=== PATIENT | female | born 1980 | race Caucasian/White ===

== ENCOUNTER 2017-11-24 07:50 | Emergency (ER) | payer SELFPAY ==
[2017-11-24 07:52] VITALS: BP 133/74; PULSE 84; RESP 18; TEMP 36.4; O2SAT 98; BMI 30.9
[2017-11-24 08:03] VITALS: O2SAT 98
--- NOTE | 2017-11-24 08:27 | EKG12_ITS ---
Test Reason : COLD SYMTOMS Blood Pressure : / mmHG Vent. Rate : 057 BPM Atrial Rate : 057 BPM P-R Int : 144 ms QRS Dur : 082 ms QT Int : 450 ms P-R-T Axes : 027 061 035 degrees QTc Int : 438 ms Sinus bradycardia with sinus arrhythmia Otherwise normal ECG Confirmed by EVELIO ALVAREZ, ÁNGEL ([id number]), newspaper or periodical editor NOEMY TURCIOS ([id number]) on 11/27/2017 10:39:52 AM Referred By: CHARLES Confirmed By:ÁNGEL FRASER MD
--- NOTE | 2017-11-24 08:28 | RAD_ITS ---
STUDY: X-RAY CHEST REASON FOR EXAM: Female, 37 years old. Off General weakness one week shortness of breath TECHNIQUE: PA and lateral views of the chest. COMPARISON: None. FINDINGS: There is slight elevation of the right hemidiaphragm. There is right greater than left streaky linear appearance of the right middle lobe. There is no demonstrated pleural abnormality. Normal size heart. Normal mediastinum and darin. Normal visualized pulmonary arteries. Normal visualized aortic arch and descending thoracic aorta. Normal visualized thoracic spine. Normal visualized ribs, clavicles, and shoulders. There is no demonstrated abnormality of the visualized soft tissue structures of the upper abdomen. RAD/Chest PA and Lateral IMPRESSION: Streaky linear appearance of the right middle lobe may represent focal atelectasis and/or infiltrate. Electronically Signed: Ivis Turner MD at 9:12 EDT Tel , Service support ,
--- NOTE | 2017-11-24 08:40 | ED.VISSUMM ---
- ER Visit Summary Date of Service: 11/24/17 Chief Complaint: [] Runny nose cough for about a week History of Present Illness: The patient is a 37 F [] history of runny nose harsh cough for about 1 week she has no past history, does report she smokes, bowel bladder habits been normal no obvious exposures she was going to work today had a harsh cough and came in for evaluation denies being bowel bladder habits been normal Physical Examination: [] Vital signs are within normal range her pulse ox is within normal range she has a obviously copiously runny nose, she has a harsh dry cough her lungs show scattered wheezing with good excursion and good air movement heart tones are unremarkable abdomen soft nontender upper lower extremity unremarkable she is resting comforting the bed when she is not coughing clinically she looks well Test Results: [] Emergency Department Course and Treatment: []hhn, chest x-ray The patient's feeling better, the chest x-ray is questionable either linear atelectasis or possibly early infiltrate right middle lobe no other acute abnormalities discussed all the above the patient and the potential for pneumonia versus URI, she is comfortable discharge home on azithromycin Z-Hoang, Mucinex, Proventil inhaler, Flonase inhaler, short with her physician stop smoking return for change in symptoms force fluids we discussed the concept of pneumonia the fact that pneumonia patient follow-up and she agrees to return if her symptoms change in any way and she is comfortable discharge home Treatment Plan: [] Disposition: [] Home stable Impression: [] Possible right lobe pneumonia versus URI This note was generated with [employer] dictation software. It may contain incorrect words, spelling, and punctuation that were not noted in review of the chart prior to signing ED Disposition - Plan for ED Patient: Chief Complaint: Cold Sx Referrals: Care Physician,No Primary [Primary Care Provider] -
[2017-11-24 08:42] VITALS: BP 108/81; PULSE 63; RESP 15; O2SAT 96
[2017-11-24] MEDS: Ipratropium/Albuterol Sulfate 3 ML AMPUL.NEB INHALATION (09:16)
[2017-11-24 09:17] VITALS: PULSE 85; RESP 18
--- NOTE | 2017-11-24 09:52 | DCINST.ED_ITS ---
ED Disposition - Plan for ED Patient: Chief Complaint: Cold Sx Instructions: ED Pneumonia Adult, ED Upper Resp Infec Abx Tx Prescriptions: Albuterol Inhaler [Ventolin Hfa] 1 - 2 puff INHALATION Q4H PRN PRN #1 inhaler PRN Reason: Wheezing Azithromycin [Zithromax Z-Hoang] 250 mg PO UD #1 box Fluticasone 0.05% [Flonase Nasal [place]] 1 spray NASAL DAILY #1 nasal.sry Guaifenesin [Mucinex] 1,200 mg PO BID #20 tbmp.12hr Referrals: Care Physician,No Primary [Primary Care Provider] - Katerine Sommer [NON-STAFF] -
[2017-11-24 10:39] VITALS: BP 100/49; PULSE 92; RESP 18; O2SAT 100
== END 2017-11-24 10:39 | disposition home or self-care (01) ==
LOC: ED 08:19
PROVIDERS: Emergency Provider Emergency Medicine
DX: J18.9 Pneumonia, unspecified organism (principal); J06.9 Acute upper respiratory infection, unspecified; Z72.0 Tobacco use
CPT/HCPCS: 71046; 93005; 94640; 99283; A4216

== ENCOUNTER 2018-06-24 17:42 | Emergency (ER) | payer OTHER, SELFPAY ==
[2018-06-24 17:43] VITALS: BP 124/76; PULSE 86; RESP 16; TEMP 36.2; O2SAT 99; BMI 32.8
--- NOTE | 2018-06-24 18:00 | EKG12_ITS ---
Test Reason : GEN ILL Blood Pressure : / mmHG Vent. Rate : 068 BPM Atrial Rate : 068 BPM P-R Int : 142 ms QRS Dur : 086 ms QT Int : 406 ms P-R-T Axes : 029 035 015 degrees QTc Int : 431 ms Normal sinus rhythm Low voltage QRS Confirmed by SETH ALVAREZ, VENESSA ([id number]), publication editor LENKA GREENWOOD ([id number]) on 06/26/2018 1:42:50 PM Referred By: Confirmed By:VENESSA ANN MD
--- NOTE | 2018-06-24 18:21 | ED.VISSUMM ---
- ER Visit Summary Date of Service: 06/24/18 Chief Complaint: Short of breath, cough, headache History of Present Illness: The patient is a 38 F with a 3-week history of cough and congestion. She was initially seen in urgent care and given Zithromax for suspected pneumonia. She states her cough and congestion continued and she developed bilateral ear pain. She was seen again in urgent care on June 13 and diagnosed with bilateral ear infection. She is currently on cefuroxime and eardrops. Patient presents today with no improvement in her symptoms. Today she feels soreness and some mild swelling around her right eye as well. She does describe chest pain when she coughs. Physical Examination: Vital signs are unremarkable. Patient sitting upright in bed no acute distress. She is nontoxic appearing. Head neck examination reveals no eye injection. Extraocular movements are intact. She does have reproducible tenderness of the right maxillary sinus. Right TM reveals cloudy fluid. Left TM has clear fluid. Posterior pharynx exam is normal. Heart is regular rate and rhythm. Lungs sounds are clear. There is reproducible anterior chest wall tenderness. Abdomen is soft and nontender. Neuro exam is unremarkable. Test Results: [] Emergency Department Course and Treatment: I discussed with the patient that it sounds like we need a stronger antibiotic. My suspicion is she has otitis, sinusitis, as well as continued bronchitis. Patient will be treated with a course of Levaquin. EKG was obtained and reveals sinus rhythm at 68 bpm with normal QTC. Treatment Plan: [] Disposition: Discharge Impression: 1. Bronchitis 2. Right otitis media 3. Sinusitis This note was generated with [employer] dictation software. It may contain incorrect words, spelling, and punctuation that were not noted in review of the chart prior to signing ED Disposition - Plan for ED Patient: Chief Complaint: General Illness Referrals: Care Physician,No Primary [Primary Care Provider] -
--- NOTE | 2018-06-24 18:23 | ED.DEP ---
ED Disposition - Plan for ED Patient: Disposition: Home or Assisted Living Chief Complaint: General Illness Instructions: Acute Bronchitis, ED Sinusitis Abx Tx, ED Otitis Media Acute Adult Prescriptions: Levofloxacin [Levaquin] 750 mg PO DAILY #4 tablet Referrals: Wally Kearney MD [STAFF PHYSICIAN] - As Needed
[2018-06-24] MEDS: levoFLOXacin 750 MG Tablet PO (18:33)
--- OUTSIDE RECORDS SUMMARY | 2018-08-27 05:20 | XMS RPT_ITS ---
:1980 Author Organization [facility] Care Team Providers Name Role Phone WISAM LANG (CDA TEACHER) Attending Unavailable Primay Care Physicia, No Primary Care Unavailable Marcia Lake Attending Unavailable Aman Gregorio Attending Unavailable Primay Care Physicia, No Primary Care Unavailable PROBLEMS PROBLEMS No Problem Records FoundPROCEDURES PROCEDURES No Procedure Records FoundRESULTS RESULTS 12 LEAD ELECTROCARDIOGRAM Observed: 06/26/2018 Status: F Source: [place] 1:43 PM [facility] Cardiovascular Services [address] [place] [address] 12 Lead EKG 06/24/18 1810 MR#: [id number] Acct: [id number] Name: DANYEL POLK Rep #: [id number] : 1980 38 From: Jordon Ann MD Attending Dr: Status: DEP ER Ordering Dr: Marcia Lake MD Date: 06/24/18 Location: ED Sex: F C Admitted: Test Reason : GEN ILL Blood Pressure : / mmHG Vent. Rate : 068 BPM Atrial Rate : 068 BPM P-R Int : 142 ms QRS Dur : 086 ms QT Int : 406 ms P-R-T Axes : 029 035 015 degrees QTc Int : 431 ms Normal sinus rhythm Low voltage QRS Confirmed by SETH ALVAREZ, JORDON ([id number]), mapping editor LENKA GREENWOOD ([id number]) on 06/26/2018 1:42:50 PM Referred By: Confirmed By:JORDON ANN MD 06/26/18 1342 Date Jordon Ann MD CC: No Primary Care Physician; Marcia aLke MD Signed EMERGENCY DEPARTMENT Observed: 06/24/2018 Status: F Source: [place] SUMMARY 10:12 PM [facility] Medical Records Department [address] [place] [address] Emergency Department Summary 06/24/18 1821 MR#: [id number] Acct: [id number] Name: DANYEL POLK Rep #: [id number] : 1980 38 From: Marcia Lake MD PCP: Care Physician, No Primary Status: DEP ER - ER Visit Summary Date of Service: 06/24/18 Chief Complaint: Short of breath, cough, headache History of Present Illness: The patient is a 38 F with a 3- week history of cough and congestion. She was initially seen in urgent care and given Zithromax for suspected pneumonia. She states her cough and congestion continued and she developed bilateral ear pain. She was seen again in urgent care on June 13 and diagnosed with bilateral ear infection. She is currently on cefuroxime and eardrops. Patient presents today with no improvement in her symptoms. Today she feels soreness and some mild swelling around her right eye as well. She does describe chest pain when she coughs. Physical Examination: Vital signs are unremarkable. Patient sitting upright in bed no acute distress. She is nontoxic appearing. Head neck examination reveals no eye injection. Extraocular movements are intact. She does have reproducible tenderness of the right maxillary sinus. Right TM reveals cloudy fluid. Left TM has clear fluid. Posterior pharynx exam is normal. Heart is regular rate and rhythm. Lungs sounds are clear. There is reproducible anterior chest wall tenderness. Abdomen is soft and nontender. Neuro exam is unremarkable. Test Results: [] Emergency Department Course and Treatment: I discussed with the patient that it sounds like we need a stronger antibiotic. My suspicion is she has otitis, sinusitis, as well as continued bronchitis. Patient will be treated with a course of Levaquin. EKG was obtained and reveals sinus rhythm at 68 bpm with normal QTC. Treatment Plan: [] Disposition: Discharge Impression: 1. Bronchitis 2. Right otitis media 3. Sinusitis This note was generated with Splother dictation software. It may contain incorrect words, spelling, and punctuation that were not noted in review of the chart prior to signing ED Disposition - Plan for ED Patient: Chief Complaint: General Illness Referrals: Care Physician,No Primary [Primary Care Provider] - What to do if you have Problems For any increased pain, shortness of breath, bleeding, nausea or vomiting, chest pain, or any unexpected problems, contact your Primary Care Provider. Call [facility] ([phone]) or report to the closest Emergency Room. Call 911 if necessary. 06/24/182211 <Electronically signed by Marcia Lake MD> Date Marcia Lake MD Cosigner Signature (If Indicated): Date CC: No Primary Care Physician DISCHARGE INSTRUCTION Observed: 06/24/2018 Status: F Source: [place] 6:24 PM [facility] Medical Records Department [address] [place] [address] Discharge Instruction 06/24/18 1823 MR#: [id number] Acct: [id number] Name: DANYEL POLK Rep #: [id number] : 1980 38 From: Marcia Lake MD PCP: Care Physician, No Primary Status: REG ER ED Disposition - Plan for ED Patient: Disposition: Home or Assisted Living Chief Complaint: General Illness Instructions: Acute Bronchitis, ED Sinusitis Abx Tx, ED Otitis Media Acute Adult Prescriptions: Levofloxacin [Levaquin] 750 mg PO DAILY #4 tablet Referrals: Wally Kearney MD [STAFF PHYSICIAN] - As Needed What to do if you have Problems For any increased pain, shortness of breath, bleeding, nausea or vomiting, chest pain, or any unexpected problems, contact your Primary Care Provider. Call [facility] ([phone]) or report to the closest Emergency Room. Call 911 if necessary. 06/24/18 9399 <Electronically signed by Marcia Lake MD> Date Marcia Lake MD Cosigner Signature (If Indicated): Date CC: No Primary Care Physician PROGRESS Observed: 02/14/2018 Status: COMPLETED Source: [place] 8:20 AM [facility] [place] REPOSITORY O ID: [id number] Author: Riya Foreman Service: (none) Author Type: Physician Outside Sales Inspector Type: Progress Notes Filed: 02/14/2018 1:43 PM Note Text: 02/14/2018 Patient presents with: Chest Congestion: chest congestion, cough, pressure headache, bilateral ear pressure SUBJECTIVE: This is a 37 year old that is here today for Complaint(s) of cough and chest congestion x 3 days. + YENI ear pressure. Notes ROBLES and sore throat. Denies SOB, wheezing, vomiting, diarrhea . PAST MEDICAL HISTORY Diagnosis Date - Otitis media several as a child requiring tubes 11 times per pt. - Smoker ALLERGIES Penicillin MEDICATIONS Current Outpatient Prescriptions: Ascorbic Acid (VITAMIN C) 1,000 mg tablet Take 1 tablet by mouth once daily. azithromycin (ZITHROMAX Z-HALLEY) 250 mg tablet Take 250 mg by mouth as directed. guaiFENesin (MUCINEX) 1,200 mg Ta12 Take 1 tablet by mouth twice daily. fluticasone (FLONASE ALLERGY RELIEF) 50 mcg/actuation nasal spray Use 1 [place] in each nostril once daily. albuterol HFA (PROAIR HFA) 90 mcg/actuation inhaler Inhale 2 Puffs as instructed as needed. [place]-3 Fatty Acids (FISH OIL) 500 mg cap Take 1 capsule by mouth once daily. (Patient not taking: Reported on 02/14/2018 ) No current facility-administered medications for this visit. SOCIAL HISTORY Social History Marital status: Single Spouse name: Years of education: Number of children: Social History Main Topics Smoking status: Current Some Day Smoker Packs/day: 0.50 Years: 18.00 Types: Cigarettes Smokeless tobacco: Never Used Alcohol use: No Drug use: No Sexual activity: Yes Partners with: Male control/protection: None, Tubal Ligation REVIEW OF SYSTEMS All other reviewed and negative other than HPI. OBJECTIVE: BP 124/82 Pulse 95 Temp 36.8 ?C (98.3 ?F) (Oral) Wt 84.4 kg (186 lb) SpO2 97% APPEARANCE Well appearing, alert, in no acute distress, well-hydrated, well nourished. EYES PERRLA, conjunctiva and sclera normal. EARS External ears normal, canals clear. Right TM bulging, dull. Left TM dull NOSE/SINUS Nares normal. Septum midline. Mucosa normal. No drainage or sinus tenderness. THROAT normal, no erythema NECK Supple, no adenopathy; HEART RRR with normal S1 and S2 LUNG clear to auscultation, No wheezing, rhonchi, rales. ASSESSMENT/PLAN: 1. Acute otitis media, right - ICD9: 382.9, ICD10: H66.91 (primary diagnosis) - Will begin treatment with as per antibiotic as written, see orders - The patient should also be given behind the counter Pseudoephedrine, warm salt water gargles, throat lozenges and/or OTC throat spray as needed and nasal saline gtts and suction prn for the first 5-7 days of treatment. - Supportive care with plenty of fluids, rest, and analgesia prn. - Follow up in 3-5 days if symptoms persist or worsen. - AZITHROMYCIN 250 MG TABLET Allergy to PCN-uncertain of reaction. Had never been on cephalosporins previously. 2. Viral URI with cough - ICD9: 465.9, ICD10: J06.9, B97.89 - Discussed viral etiology and rationale for treatment. - Symptomatic treatment with prn analgesia - Supportive care with fluids and rest - The patient may also use OTC cough and cold meds as needed, warm salt water gargles, throat lozenges and/or OTC throat spray as needed and nasal saline gtts and suction prn. - Follow up in 3-5 days if symptoms persist or sooner if worsening of symptoms - BENZONATATE 100 MG CAPSULE The patient indicates understanding of these issues and agrees with the plan. Reviewed red flags and when to seek care sooner. Riya Foreman PA-C CNOV Observed: 02/14/2018 Status: COMPLETED Source: [place] 8:15 AM [facility] REPOSITORY Office Visit ([facility]) DANYEL POLK ([id number]) 1980 F Date Time Provider Department 02/14/18 8:15 AM RIYA FOREMAN) [facility] During your visit today, we recorded the following information about you: Temperature Pulse Blood pressure Weight 98.3 degrees 95/minute 124/82 84.4 kg Riya Foreman PA-C 02/14/2018 1:43 PM Signed 02/14/2018 Patient presents with: Chest Congestion: chest congestion, cough, pressure headache, bilateral ear pressure SUBJECTIVE: This is a 37 year old that is here today for Complaint(s) of cough and chest congestion x 3 days. + YENI ear pressure. Notes ROBLES and sore throat. Denies SOB, wheezing, vomiting, diarrhea . PAST MEDICAL HISTORY Diagnosis Date - Otitis media several as a child requiring tubes 11 times per pt. - Smoker ALLERGIES Penicillin MEDICATIONS Current Outpatient Prescriptions: Ascorbic Acid (VITAMIN C) 1,000 mg tablet Take 1 tablet by mouth once daily. azithromycin (ZITHROMAX Z-HALLEY) 250 mg tablet Take 250 mg by mouth as directed. guaiFENesin (MUCINEX) 1,200 mg Ta12 Take 1 tablet by mouth twice daily. fluticasone (FLONASE ALLERGY RELIEF) 50 mcg/actuation nasal spray Use 1 [place] in each nostril once daily. albuterol HFA (PROAIR HFA) 90 mcg/actuation inhaler Inhale 2 Puffs as instructed as needed. [place]-3 Fatty Acids (FISH OIL) 500 mg cap Take 1 capsule by mouth once daily. (Patient not taking: Reported on 02/14/2018 ) No current facility-administered medications for this visit. SOCIAL HISTORY Social History Marital status: Single Spouse name: Years of education: Number of children: Social History Main Topics Smoking status: Current Some Day Smoker Packs/day: 0.50 Years: 18.00 Types: Cigarettes Smokeless tobacco: Never Used Alcohol use: No Drug use: No Sexual activity: Yes Partners with: Male control/protection: None, Tubal Ligation REVIEW OF SYSTEMS All other reviewed and negative other than HPI. OBJECTIVE: BP 124/82 Pulse 95 Temp 36.8 ?C (98.3 ?F) (Oral) Wt 84.4 kg (186 lb) SpO2 97% APPEARANCE Well appearing, alert, in no acute distress, well- hydrated, well nourished. EYES PERRLA, conjunctiva and sclera normal. EARS External ears normal, canals clear. Right TM bulging, dull. Left TM dull NOSE/SINUS Nares normal. Septum midline. Mucosa normal. No drainage or sinus tenderness. THROAT normal, no erythema NECK Supple, no adenopathy; HEART RRR with normal S1 and S2 LUNG clear to auscultation, No wheezing, rhonchi, rales. ASSESSMENT/PLAN: 1. Acute otitis media, right - ICD9: 382.9, ICD10: H66.91 (primary diagnosis) - Will begin treatment with as per antibiotic as written, see orders - The patient should also be given behind the counter Pseudoephedrine, warm salt water gargles, throat lozenges and/or OTC throat spray as needed and nasal saline gtts and suction prn for the first 5-7 days of treatment. - Supportive care with plenty of fluids, rest, and analgesia prn. - Follow up in 3-5 days if symptoms persist or worsen. - AZITHROMYCIN 250 MG TABLET Allergy to PCN-uncertain of reaction. Had never been on cephalosporins previously. 2. Viral URI with cough - ICD9: 465.9, ICD10: J06.9, B97.89 - Discussed viral etiology and rationale for treatment. - Symptomatic treatment with prn analgesia - Supportive care with fluids and rest - The patient may also use OTC cough and cold meds as needed, warm salt water gargles, throat lozenges and/or OTC throat spray as needed and nasal saline gtts and suction prn. - Follow up in 3-5 days if symptoms persist or sooner if worsening of symptoms - BENZONATATE 100 MG CAPSULE The patient indicates understanding of these issues and agrees with the plan. Reviewed red flags and when to seek care sooner. Riya Foreman PA-C Referring Provider: SELF [200] Allergies As of Date: 02/14/2018 Noted Allergy Reaction PENICILLIN 11/27/2017 16 - Unknown Comments: Childhood DX Date Reviewed: 02/14/2018 Reviewed by: Sheri Mann Ma - Fully Assessed Reason for Visit: Chest Congestion [236] Cmt: chest congestion, cough, pressure headache, bilateral ear pressure Primary Visit Diagnosis:Acute otitis media, right [H66.91] Other Visit Diagnosis:Viral URI with cough [J06.9, B97.89] Order(s):azithromycin (ZITHROMAX Z-HALLEY) 250 mg tabletTake 2 tablets day one, then, 1 tablet daily until gone.Disp: 1 PackageRfl: 0 benzonatate (TESSALON PERLE) 100 mg capsuleTake 1- 2 capsules by mouth three times daily as needed.Disp: 30 capsuleRfl: 0 Prescriptions as of 02/14/2018 Sig: ASCORBIC ACID (VITAMIN C) 1,0* Take 1 tablet by mouth once d* AZITHROMYCIN 250 MG TABLET Take 2 tablets day one, then,* BENZONATATE 100 MG CAPSULE Take 1-2 capsules by mouth th* AZITHROMYCIN 250 MG TABLET Take 250 mg by mouth as direc* GUAIFENESIN ER 1,200 MG TABLE* Take 1 tablet by mouth twice * FLUTICASONE 50 MCG/ACTUATION * Use 1 [place] in each nostril o* ALBUTEROL SULFATE HFA 90 MCG/* Inhale 2 Puffs as instructed * [place]-3 FATTY ACIDS 500 MG CA* Take 1 capsule by mouth once * Patient not taking: Reported on 02/14/2018 Problem List As Of Date: 02/14/2018 (None) Prescriptions ordered this encounter Disp Refills Start End AZITHROMYCIN 250 MG TABLET 1 Pa* 0 02/14/2018 02/19/2018 Sig: Take 2 tablets day one, then, 1 tablet daily until gone. BENZONATATE 100 MG CAPSULE 30 c* 0 02/14/2018 Route: ORAL Sig: Take 1-2 capsules by mouth three times daily as needed. Letter Text Riya Foreman PA-C Urgent Care [address] [facility] [address] Dept: [phone] 02/14/2018 Danyel Polk [address] [facility] [id number] To Whom it May Concern: This is to certify that Danyel Polk was seen at our office for medical care. If you have any questions please feel free to call. Sincerely: Riya Foreman PA-C Encounter Status:Closed by RIYA FOREMAN PA-C on 02/14/18 12 LEAD ELECTROCARDIOGRAM Observed: 11/27/2017 Status: F Source: [place] 10:40 AM [facility] RE[facility] Cardiovascular Services [address] [place] [address] 12 Lead EKG 11/24/17 0912 MR#: [id number] Acct: [id number] Name: DANYEL POLK Rep #: [id number] : 1980 37 From: Miquel Champion MD Attending Dr: Status: DEP ER Ordering Dr: Aman Gregorio MD Date: 11/24/17 Location: ED Sex: F C Admitted: Test Reason : COLD SYMTOMS Blood Pressure : / mmHG Vent. Rate : 057 BPM Atrial Rate : 057 BPM P-R Int : 144 ms QRS Dur : 082 ms QT Int : 450 ms P-R-T Axes : 027 061 035 degrees QTc Int : 438 ms Sinus bradycardia with sinus arrhythmia Otherwise normal ECG Confirmed by MIQUEL CHAMPION MD ([id number]), mapping editor NOEMY TURCIOS ([id number]) on 11/27/2017 10:39:52 AM Referred By: CHARLES Confirmed By:MIQUEL CHAMPION MD 11/27/17 1039 Date Miquel Champion MD CC: MD Lori Gregorio; No Primary Care Physician Signed PROGRESS Observed: 11/27/2017 Status: COMPLETED Source: [place] 9:48 AM [facility] REPOSITORY HNO ID: [id number] Author: Wisam Lang Service: (none) Author Type: Nurse Practitioner Type: Progress Notes Filed: 11/27/2017 10:05 AM Note Text: 11/27/2017 Patient presents with: ER F/U: pneumonia 11/24/17 SUBJECTIVE: This is a 37 year old that is here today for ER follow up pneumonia and URI. She was seen in [facility] ER 11/24/17 and started on Zpak, mucinex, flonase, and albuterol inhaler. She states that she is not feeling any better and she now has worse ear pain and cannot hear out of the left ear. She states she has a history of chronic otitis media requiring tubes 11 times. She continues to have a harsh cough, feels like she should be able to bring something up but can't. She has felt feverish, but has not checked temp- last night was the most recent. Nasal congestion and rhinorrhea. Boyfriend can feel wheezing when touching her back. Occasionally hears wheezing. Inhaler helps. She has been drinking a lot of water. No change in diet, bowel or bladder. Denies facial pain or ROBLES. Denies CP or SOB. PAST MEDICAL HISTORY Diagnosis Date - Smoker ALLERGIES Penicillin MEDICATIONS Current Outpatient Prescriptions: azithromycin (ZITHROMAX Z-HALLEY) 250 mg tablet Take 250 mg by mouth as directed. guaiFENesin (MUCINEX) 1,200 mg Ta12 Take 1 tablet by mouth twice daily. fluticasone (FLONASE ALLERGY RELIEF) 50 mcg/actuation nasal spray Use 1 [place] in each nostril once daily. albuterol HFA (PROAIR HFA) 90 mcg/actuation inhaler Inhale 2 Puffs as instructed as needed. Ascorbic Acid (VITAMIN C) 1,000 mg tablet Take 1 tablet by mouth once daily. [place]-3 Fatty Acids (FISH OIL) 500 mg cap Take 1 capsule by mouth once daily. doxycycline monohydrate (MONODOX) 100 mg capsule Take 1 capsule by mouth twice daily for 10 days. No current facility-administered medications for this visit. Medications and allergies reviewed by this provider. SOCIAL HISTORY Social History Marital status: Single Spouse name: Years of education: Number of children: Social History Main Topics Smoking status: Current Some Day Smoker Packs/day: 0.50 Years: 18.00 Types: Cigarettes Smokeless tobacco: Never Used Alcohol use: No Drug use: No Sexual activity: Yes Partners with: Male control/protection: None, Tubal Ligation REVIEW OF SYSTEMS see HPI OBJECTIVE: BP 114/82 (BP Site: Left Arm, BP Position: Sitting, BP Cuff Size: Regular Adult) Pulse 86 Temp 36.7 ?C (98.1 ?F) (Right Tympanic) Resp 16 Wt 85 kg (187 lb 6.4 oz) LMP 11/09/2017 (Approximate) SpO2 98% . Vital signs reviewed by this provider. PHYSICAL EXAMINATION: General appearance: Well appearing, alert, in no acute distress, well-hydrated, well nourished. Skin: Skin color, texture, turgor normal, no suspicious rashes or lesions Head: Normocephalic, no masses, lesions, tenderness or abnormalities Eyes: Anicteric sclera. Pupils are equally round and reactive to light. Extraocular movements are intact. Ears: Positive findings: pain with motion of pinna and tragus: bilaterally, R TM: bulging, L TM: purulent material noted behind TM, scarring noted and thickened, erythema and edema of ear canal: on left Nose/Sinuses: Positive findings: mucosa erythematous and swollen, clear rhinorrhea Oropharynx: Positive findings: mild oropharyngeal erythema, tonsillar hypertrophy 1+, exudates present- clear Neck: Positive findings: submaxillary, submental and superficial cervical adenopathy Lungs: Lungs clear to auscultation. No wheezing, rhonchi, rales Heart: RRR without murmur, gallop, or rubs. No ectopy ASSESSMENT/PLAN: 1. Bacterial pneumonia - ICD9: 482.9, ICD10: J15.9 (primary diagnosis) - due to otitis media, will switch antibiotic to doxy. Pt instructed to stop Zpak. - continue to cough and deep breathe - encouraged fluids, humidifier, rest and continued use of mucinex, flonase, and albuterol as needed - DOXYCYCLINE MONOHYDRATE 100 MG CAPSULE 2. Acute otitis media, left - ICD9: 382.9, ICD10: H66.92 - see above - DOXYCYCLINE MONOHYDRATE 100 MG CAPSULE Wisam Lang APRN.MICHAEL MARTIN Observed: 11/27/2017 Status: COMPLETED Source: [place] 9:00 AM [facility] REPOSITORY [facility] ([id number]) 1980 F Date Time Provider Department 11/27/17 9:00 AM WISAM LANG (MICHAEL) KEVEN During your visit today, we recorded the following information about you: Temperature Pulse Respiration Blood pressure 98.1 degrees 86/minute 16/minute 114/82 Weight Last Period 85 kg 11/09/17 Wisam Lang APRN.MICHAEL 11/27/2017 9:41 AM Signed Stop Zpak and start Doxycycline All Natural DIY Pineapple Cough Syrup Yield: about a cup What You Will Need ? 2 thick slices of fresh pineapple, peel removed, but core intact (about two good cups) ? 1 Tbsp honey ? 1/2 tsp cayenne pepper (omit or reduce for children) ? a thumb sized piece of bhavya (omit or reduce for children), peeled and sliced or rough chopped ? juice of 1 lemon Instructions 1) Give the pineapple a rough chop, including the core, which is not only edible but particularly healthy 2) Blend everything up in a activity director or seafood packer until smooth. 3) Use as is, or push the mixture through a mesh strainer to get a smoother syrup. 4) Keep in the refrigerator and take as needed. Note: Do not give anything with honey to children under 1 year old. If you have a persistent cough, seek medical attention. Recipe slightly adapted from [email or web address] Wisam Lang APRN.CNP 11/27/2017 10:05 AM Signed 11/27/2017 Patient presents with: ER F/U: pneumonia 11/24/17 SUBJECTIVE: This is a 37 year old that is here today for ER follow up pneumonia and URI. She was seen in [facility] ER 11/24/17 and started on Zpak, mucinex, flonase, and albuterol inhaler. She states that she is not feeling any better and she now has worse ear pain and cannot hear out of the left ear. She states she has a history of chronic otitis media requiring tubes 11 times. She continues to have a harsh cough, feels like she should be able to bring something up but can't. She has felt feverish, but has not checked temp- last night was the most recent. Nasal congestion and rhinorrhea. Boyfriend can feel wheezing when touching her back. Occasionally hears wheezing. Inhaler helps. She has been drinking a lot of water. No change in diet, bowel or bladder. Denies facial pain or ROBLES. Denies CP or SOB. PAST MEDICAL HISTORY Diagnosis Date - Smoker ALLERGIES Penicillin MEDICATIONS Current Outpatient Prescriptions: azithromycin (ZITHROMAX Z-HALLEY) 250 mg tablet Take 250 mg by mouth as directed. guaiFENesin (MUCINEX) 1,200 mg Ta12 Take 1 tablet by mouth twice daily. fluticasone (FLONASE ALLERGY RELIEF) 50 mcg/actuation nasal spray Use 1 [place] in each nostril once daily. albuterol HFA (PROAIR HFA) 90 mcg/actuation inhaler Inhale 2 Puffs as instructed as needed. Ascorbic Acid (VITAMIN C) 1,000 mg tablet Take 1 tablet by mouth once daily. [place]-3 Fatty Acids (FISH OIL) 500 mg cap Take 1 capsule by mouth once daily. doxycycline monohydrate (MONODOX) 100 mg capsule Take 1 capsule by mouth twice daily for 10 days. No current facility-administered medications for this visit. Medications and allergies reviewed by this provider. SOCIAL HISTORY Social History Marital status: Single Spouse name: Years of education: Number of children: Social History Main Topics Smoking status: Current Some Day Smoker Packs/day: 0.50 Years: 18.00 Types: Cigarettes Smokeless tobacco: Never Used Alcohol use: No Drug use: No Sexual activity: Yes Partners with: Male control/protection: None, Tubal Ligation REVIEW OF SYSTEMS see HPI OBJECTIVE: BP 114/82 (BP Site: Left Arm, BP Position: Sitting, BP Cuff Size: Regular Adult) Pulse 86 Temp 36.7 ?C (98.1 ?F) (Right Tympanic) Resp 16 Wt 85 kg (187 lb 6.4 oz) LMP 11/09/2017 (Approximate) SpO2 98% . Vital signs reviewed by this provider. PHYSICAL EXAMINATION: General appearance: Well appearing, alert, in no acute distress, well-hydrated, well nourished. Skin: Skin color, texture, turgor normal, no suspicious rashes or lesions Head: Normocephalic, no masses, lesions, tenderness or abnormalities Eyes: Anicteric sclera. Pupils are equally round and reactive to light. Extraocular movements are intact. Ears: Positive findings: pain with motion of pinna and tragus: bilaterally, R TM: bulging, L TM: purulent material noted behind TM, scarring noted and thickened, erythema and edema of ear canal: on left Nose/Sinuses: Positive findings: mucosa erythematous and swollen, clear rhinorrhea Oropharynx: Positive findings: mild oropharyngeal erythema, tonsillar hypertrophy 1+, exudates present- clear Neck: Positive findings: submaxillary, submental and superficial cervical adenopathy Lungs: Lungs clear to auscultation. No wheezing, rhonchi, rales Heart: RRR without murmur, gallop, or rubs. No ectopy ASSESSMENT/PLAN: 1. Bacterial pneumonia - ICD9: 482.9, ICD10: J15.9 (primary diagnosis) - due to otitis media, will switch antibiotic to doxy. Pt instructed to stop Zpak. - continue to cough and deep breathe - encouraged fluids, humidifier, rest and continued use of mucinex, flonase, and albuterol as needed - DOXYCYCLINE MONOHYDRATE 100 MG CAPSULE 2. Acute otitis media, left - ICD9: 382.9, ICD10: H66.92 - see above - DOXYCYCLINE MONOHYDRATE 100 MG CAPSULE Wisam Lang APRN.CDA TEACHER Referring Provider: SELF [200] Allergies As of Date: 11/27/2017 Noted Allergy Reaction PENICILLIN 11/27/2017 16 - Unknown Comments: Childhood DX Date Reviewed: 11/27/2017 Reviewed by: Tiffanie Gutierres Ma - Fully Assessed Reason for Visit: ER F/U [41] Cmt: pneumonia 11/24/17 Primary Visit Diagnosis:Bacterial pneumonia [J15.9] Other Visit Diagnosis:Acute otitis media, left [H66.92] Order(s):Ascorbic Acid (VITAMIN C) 1,000 mg tabletTake 1 tablet by mouth once daily.Disp: Rfl: [place]-3 Fatty Acids (FISH OIL) 500 mg capTake 1 capsule by mouth once daily.Disp: Rfl: doxycycline monohydrate (MONODOX) 100 mg capsuleTake 1 capsule by mouth twice daily for 10 days.Disp: 20 capsuleRfl: 0 Prescriptions as of 11/27/2017 Sig: AZITHROMYCIN 250 MG TABLET Take 250 mg by mouth as direc* GUAIFENESIN ER 1,200 MG TABLE* Take 1 tablet by mouth twice * FLUTICASONE 50 MCG/ACTUATION * Use 1 [place] in each nostril o* ALBUTEROL SULFATE HFA 90 MCG/* Inhale 2 Puffs as instructed * ASCORBIC ACID (VITAMIN C) 1,0* Take 1 tablet by mouth once d* OMEGA-3 FATTY ACIDS 500 MG CA* Take 1 capsule by mouth once * DOXYCYCLINE MONOHYDRATE 100 M* Take 1 capsule by mouth twice* Problem List As Of Date: 11/27/2017 (None) Other instructions from your clinician: Stop Zpak and start Doxycycline All Natural DIY Pineapple Cough Syrup Yield: about a cup What You Will Need ? 2 thick slices of fresh pineapple, peel removed, but core intact (about two good cups) ? 1 Tbsp honey ? 1/2 tsp cayenne pepper (omit or reduce for children) ? a thumb sized piece of bhavya (omit or reduce for children), peeled and sliced or rough chopped ? juice of 1 lemon Instructions 1) Give the pineapple a rough chop, including the core, which is not only edible but particularly healthy 2) Blend everything up in a activity director or seafood packer until smooth. 3) Use as is, or push the mixture through a mesh strainer to get a smoother syrup. 4) Keep in the refrigerator and take as needed. Note: Do not give anything with honey to children under 1 year old. If you have a persistent cough, seek medical attention. Recipe slightly adapted from [email or web address] Prescriptions ordered this encounter Disp Refills Start End ASCORBIC ACID (VITAMIN C) 1,000 MG T* 11/27/2017 Class: Med Update Route: ORAL Sig: Take 1 tablet by mouth once daily. OMEGA-3 FATTY ACIDS 500 MG CAPSULE 11/27/2017 Class: Med Update Route: ORAL Sig: Take 1 capsule by mouth once daily. DOXYCYCLINE MONOHYDRATE 100 MG CAPSU* 20 c* 0 11/27/2017 12/07/2017 Route: ORAL Sig: Take 1 capsule by mouth twice daily for 10 days. Letter Text Wisam Lang, CDA TEACHER [address] [place], [place] [address] 11/27/2017 TO WHOM IT MAY CONCERN: This is to confirm that Danyel Polk had an appointment and was seen at the [facility] in the Department of Family Medicine by Wisam Lang CNPon 11/27/2017 and may return to work on 11/29/17. Sincerely yours, Wisam Lang CNP Encounter Status:Closed by WISAM LANG on 11/27/17 EMERGENCY DEPARTMENT Observed: 11/24/2017 Status: F Source: WAIALUA SUMMARY 3:25 PM [facility] Medical Records Department [address] [place] [address] Emergency Department Summary 11/24/17 0840 MR#: [id number] Acct: [id number] Name: DANYEL POLK Rep #: [id number] : 1980 37 From: Aman Gregorio MD PCP: Care Physician, No Primary Status: DEP ER - ER Visit Summary Date of Service: 11/24/17 Chief Complaint: [] Runny nose cough for about a week History of Present Illness: The patient is a 37 F [] history of runny nose harsh cough for about 1 week she has no past history, does report she smokes, bowel bladder habits been normal no obvious exposures she was going to work today had a harsh cough and came in for evaluation denies being bowel bladder habits been normal Physical Examination: [] Vital signs are within normal range her pulse ox is within normal range she has a obviously copiously runny nose, she has a harsh dry cough her lungs show scattered wheezing with good excursion and good air movement heart tones are unremarkable abdomen soft nontender upper lower extremity unremarkable she is resting comforting the bed when she is not coughing clinically she looks well Test Results: [] Emergency Department Course and Treatment: []hhn, chest x-ray The patient's feeling better, the chest x-ray is questionable either linear atelectasis or possibly early infiltrate right middle lobe no other acute abnormalities discussed all the above the patient and the potential for pneumonia versus URI, she is comfortable discharge home on azithromycin Z-Halley, Mucinex, Proventil inhaler, Flonase inhaler, short with her physician stop smoking return for change in symptoms force fluids we discussed the concept of pneumonia the fact that pneumonia patient follow-up and she agrees to return if her symptoms change in any way and she is comfortable discharge home Treatment Plan: [] Disposition: [] Home stable Impression: [] Possible right lobe pneumonia versus URI This note was generated with [employer] dictation software. It may contain incorrect words, spelling, and punctuation that were not noted in review of the chart prior to signing ED Disposition - Plan for ED Patient: Chief Complaint: Cold Sx Referrals: Care Physician,No Primary [Primary Care Provider] - What to do if you have Problems For any increased pain, shortness of breath, bleeding, nausea or vomiting, chest pain, or any unexpected problems, contact your Primary Care Provider. Call [facility] ([phone]) or report to the closest Emergency Room. Call 911 if necessary. 11/24/17 1525 <Electronically signed by Aman Gregorio MD> Date Aman Gregorio MD Cosigner Signature (If Indicated): Date CC: No Primary Care Physician DISCHARGE INSTRUCTION Observed: 11/24/2017 Status: F Source: NORI 9:52 AM [facility] Medical Records Department [address] [place] [address] Discharge Instruction 11/24/17 0949 MR#: [id number] Acct: [id number] Name: DANYEL POLK Rep #: [id number] : 1980 37 From: Aman Gregorio MD PCP: Care Physician, No Primary Status: REG ER ED Disposition - Plan for ED Patient: Chief Complaint: Cold Sx Instructions: ED Pneumonia Adult, ED Upper Resp Infec Abx Tx Prescriptions: Albuterol Inhaler [Ventolin Hfa] 1 - 2 puff INHALATION Q4H PRN PRN #1 inhaler PRN Reason: Wheezing Azithromycin [Zithromax Z-Halley] 250 mg PO UD #1 box Fluticasone 0.05% [Flonase Nasal [place]] 1 spray NASAL DAILY #1 nasal.sry Guaifenesin [Mucinex] 1,200 mg PO BID #20 tbmp.12hr Referrals: Care Physician,No Primary [Primary Care Provider] - Katerine Sommer [NON-STAFF] - What to do if you have Problems For any increased pain, shortness of breath, bleeding, nausea or vomiting, chest pain, or any unexpected problems, contact your Primary Care Provider. Call [facility] ([phone]) or report to the closest Emergency Room. Call 911 if necessary. 11/24/17 0952 <Electronically signed by Aman rGegorio MD> Date Aman Gregorio MD Cosigner Signature (If Indicated): Date CC: No Primary Care Physician CHEST PA AND LATERAL Observed: 11/24/2017 Status: F Source: WAIALUA 8:29 AM [facility] Imaging Services [address] [place] [id number] Chest PA and Lateral MR#: [id number] Acct: [id number] Name: DANYEL POLK Rep #: [id number] : 1980 F 37 From: Ivis Turner MD PCP: Care Physician, No Primary Status: REG ER Study: Chest PA and Lateral Date of Exam: 11/24/17 Exam# [id number] Ordering Dr: Aman Gregorio MD STUDY: X-RAY CHEST REASON FOR EXAM: Female, 37 years old. Off General weakness one week shortness of breath TECHNIQUE: PA and lateral views of the chest. COMPARISON: None. FINDINGS: There is slight elevation of the right hemidiaphragm. There is right greater than left streaky linear appearance of the right middle lobe. There is no demonstrated pleural abnormality. Normal size heart. Normal mediastinum and darin. Normal visualized pulmonary arteries. Normal visualized aortic arch and descending thoracic aorta. Normal visualized thoracic spine. Normal visualized ribs, clavicles, and shoulders. There is no demonstrated abnormality of the visualized soft tissue structures of the upper abdomen. RAD/Chest PA and Lateral IMPRESSION: Streaky linear appearance of the right middle lobe may represent focal atelectasis and/or infiltrate. Electronically Signed: Ivis Turner MD at 9:12 EDT Tel , Service support , CC: MD Lori Martinezyekameron; No Primary Care Physician Film Booker: Signed ALLERGIES ALLERGIES DATE TYPE / CODE NAME / CODE REACTION SEVERITY SOURCE 06/24/2018 Drug Penicillins/F0010 Unknown Unknown Nori Allergy/416 32422(RXNORM) [facility] [id number]([facility] ED [facility]) Repository 11/27/2017 DRUG PENICILLIN UNKNOWN [facility]/[address] [place] [id number]([facility] ED CT) ENCOUNTERS ENCOUNTERS ADMIT/DISCHARGE ACCOUNT ADMITTING ENCOUNTER LOCATION SOURCE NUMBER CLASS 06/24/2018/06/24/19 [id number] Emergency [facility] ing:ED Repository 02/14/2018/02/16/20 [id number] Ambulatory [address] Repository 11/27/2017/11/29/19 [id number] Ambulatory [address] Repository 11/24/2017/11/25/19 [id number] Emergency [facility] ing:ED Repository PAYERS PAYERS ENCOUNTER GUARANTOR PAYER SUBSCRIBER SOURCE 06/24/2018 DANYEL Knight Primary DANYEL [id number] Insurance:MEDICAL RAINIERDOB: [facility] [place] Number: Repository [id number]: [phone]) [id number] [phone] () Date:[id number], [place] [address]UB: 06/24/2018 Secondary NOT GIVENUNK Nori Insurance:SELF PAY [facility] Number: Effective Repository Date:2018-06-24 11/24/2017 DANYEL Knight Primary NOT GIVENUNK Nori [id number] Insurance:SELF PAY [place], [place] Number: Effective Repository [phone]: [phone]) Date:2017-11-24 [phone] ()
== END 2018-06-24 18:36 | disposition home or self-care (01) ==
PROVIDERS: Emergency Provider Emergency Medicine
DX: J40 Bronchitis, not specified as acute or chronic (principal); H66.91 Otitis media, unspecified, right ear; J32.9 Chronic sinusitis, unspecified; Z72.0 Tobacco use
CPT/HCPCS: 93005; 99283

== ENCOUNTER 2018-07-29 18:20 | Emergency (ER) | payer OTHER, SELFPAY ==
[2018-07-29 18:21] VITALS: BP 110/81; PULSE 70; RESP 18; TEMP 36.9; O2SAT 98; BMI 33.9
[2018-07-29 19:50] VITALS: BP 129/87; PULSE 79; RESP 15; O2SAT 99
--- NOTE | 2018-07-29 20:05 | ED.VISSUMM ---
- ER Visit Summary Date of Service: 07/29/18 Chief Complaint: Swelling, redness left upper eyelid with crusting of eyelashes History of Present Illness: The patient is a 38 F who presents with swelling of the left upper eyelid with redness and crusting of eyelashes over the past 24 hours. She denies change in vision. She denies photophobia. She denies pain with movement. She has no other symptoms. Patient was concerned because she is scheduled for surgery this coming Sunday. She denies any constitutional symptoms. Physical Examination: Visual acuity is 20/25 right and left eye and both eyes. Pupils equal round reactive paradoxic muscle intact. Sclerae anicteric. There is no subconjunctival hemorrhage. Conjunctive is not injected. There is swelling of the left upper eyelid with mild discoloration. No crusting or discharge is noted at this time. There is no active matter the lacrimal gland or lacrimal apparatus. There is no preauricular lymphadenopathy. Test Results: None obtained Emergency Department Course and Treatment: Patient was informed that she has a hordeolum and recommended hot compresses, cleaning her eyelashes with baby shampoo and massaging the upper eyelid Treatment Plan: As outlined under ED course Disposition: Discharged home Impression: Hordeolum left upper eyelid This note was generated with [employer] dictation software. It may contain incorrect words, spelling, and punctuation that were not noted in review of the chart prior to signing ED Disposition - Plan for ED Patient: Disposition: Home or Assisted Living Instructions: ED Hordeolum Referrals: Care Physician,No Primary [Primary Care Provider] - Additional Instructions: Hot compresses 6-8 times a day for 15-20 minutes, rub upper eyelid with baby shampoo 4 times a day
== END 2018-07-29 20:25 | disposition home or self-care (01) ==
LOC: ED 20:15
PROVIDERS: Emergency Provider Emergency Medicine
DX: H00.014 Hordeolum externum left upper eyelid (principal); Z72.0 Tobacco use
CPT/HCPCS: 99283

== ENCOUNTER 2018-08-02 07:08 | Day surgery (SDC) | payer OTHER, SELFPAY ==
[2018-08-02 07:25] VITALS: BP 112/72; PULSE 72; RESP 17; TEMP 36.6; O2SAT 98; BMI 34.9
--- NOTE | 2018-08-02 09:05 | PCM.OPRPT ---
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 Historically this resulted in significant improvement of her hearing loss and she presented for evaluation for a conductive hearing loss with exam showing deeply retracted tympanic membranes bilaterally. The above procedure offered hopes of improvement of her hearing loss as well as prevention of progression of her adhesive middle ear disease and she was agreeable to proceed. The risks, alternatives, potential benefits, and complications were discussed at length and any questions answered to the patient and/or caregiver's satisfaction. Witnessed informed consent was obtained in the office, and the patient and/or caregiver was agreeable to proceed. Procedure went as follows: The patient was identified in the preoperative holding and brought to the operating room, and placed under general anesthesia. When appropriate anesthesia was obtained, the operative microscope was brought into the field and beginning on the right side the external auditory canal and tympanic membrane visualized. This is noted to be deeply retracted with near obliteration of the middle ear cleft. A myringotomy was then placed in the anteroinferior portion the tympanic membrane. Using a gently curved pick the middle ear cleft was then developed freeing the adherent portion of the tympanic membrane from the promontory. There is noted to be very little posterior ventilation and middle ear cleft which did allow a good ET tube to be placed once the limbs of the tube were trimmed. Oxymetazoline drops were then applied. Similar procedure findings a completed on the contralateral side where a atelectatic tympanic membrane was encountered but without the adhesion to the middle ear cleft. The patient was then returned to anesthesia, revived and returned to recovery without complication. Type of Anesthesia:: General Anesthesiologist: Emir Hamilton Special Medications: none Specimen's removed: none Drains: none Estimated Blood Loss (mL): 0 mL Fluids Replaced: 0 mL Grafts/Implants Used: t-tubes - Complications none - Admit VTE Documentation VTE Present on Admission: No VTE Mechan Device Prophylaxis: SCD's VTE Pharm Prophylaxis ordered?: No
[2018-08-02 09:11] VITALS: BP 112/72; BP 97/77; PULSE 107; RESP 18; TEMP 36.1; O2SAT 96
--- NOTE | 2018-08-02 09:12 | DCINST_ITS ---
Discharge Diet: No Restrictions Discharge Activity: Return to Normal Activity Call your doctor if your incision/area has: Continuous Slow Oozing Call your doctor if you observe: Fever of 101 or Higher, Uncontrolled pain Allergies/Adverse Reactions: Allergies Penicillins Allergy (Verified 08/02/18 07:25) Unknown Medications to take at Discharge NK 07/29/18 Primary Care Physician: Care Physician,No Primary [Primary Care Provider] - Test Results: Test results from this visit will be discussed in further detail at your follow- up appointment, if applicable. Please Follow Up With: Wally Kearney MD When: 2 weeks
[2018-08-02 09:15] VITALS: BP 112/72; BP 123/83; PULSE 82; RESP 18; O2SAT 98
[2018-08-02 09:30] VITALS: BP 112/72; BP 113/79; PULSE 68; RESP 18; TEMP 36.3; O2SAT 97
[2018-08-02 09:50] VITALS: BP 112/72
== END 2018-08-02 10:07 | disposition home or self-care (01) ==
LOC: SDC 07:11 → AC 07:28
PROVIDERS: Referring Provider Otolaryngology; Visit Provider Otolaryngology
PROC: (CPT 69436; principal; 2018-08-02 08:40)
DX: H73.823 Atrophic nonflaccid tympanic membrane, bilateral (principal); H69.93 Unspecified Eustachian tube disorder, bilateral; H90.11 Conductive hearing loss, unilateral, right ear, with unrestricted hearing on the contralateral side; H74.11 Adhesive right middle ear disease; F17.200 Nicotine dependence, unspecified, uncomplicated
CPT/HCPCS: 69436; J2405

== ENCOUNTER 2018-09-28 10:37 | Emergency (ER) | payer OTHER, SELFPAY ==
[2018-09-28 10:39] VITALS: BP 135/73; PULSE 71; RESP 16; TEMP 36.6; O2SAT 99; BMI 31.8
--- NOTE | 2018-09-28 11:00 | US_ITS ---
STUDY: ULTRASOUND TRANSVAGINAL CLINICAL: Female, 38 years old. Pelvic pain. TECHNIQUE: Transabdominal and Transvaginal, the latter used to optimize detail COMPARISON: None. FINDINGS: Normal uterine size measuring 10.2 x 6.6 x 5.3 cm in maximal craniocaudal dimension. There are no myometrial masses. Normal endometrial thickness measuring 6.2 mm. There are no endometrial masses, and there is no fluid in the endometrial cavity. Normal uterine cervix. The right ovary is not visualized. No demonstrated right adnexal complex lesion or mass. The left ovary is not visualized. No demonstrated left adnexal complex lesion or mass. There is no free fluid in the pelvis. Polycystic ovary disease: No. US/Transvaginal Non- IMPRESSION: Normal-appearing anteverted uterus. The adnexa are not visualized. Electronically Signed: Angelo Cheung MD at 12:16 EDT , Service support ,
[2018-09-28] MEDS: Ketorolac 30 MG/ML Syringe IV (11:10)
[2018-09-28] MEDS: 0.9% Normal Saline 1,000 ML 150 ML IV (11:10)
[2018-09-28] MEDS: HYDROmorphone 1 MG/ML Syringe 0.5 MG IV (11:10)
[2018-09-28] MEDS: Ondansetron 4 MG/2 ML Vial IV (11:10)
[2018-09-28 11:16] LABS: Absolute Lymphocyte Count 2.61 X10^3/ul (0.83-4.51); Absolute Neutrophil Count 13.6 X10^3/uL (2.0-7.7); Basophil# 0.04 X10^3/uL; Basophil% 0.2 % (0-1); Eosinophil# 0.16 X10^3/uL; Eosinophils% 0.9 % (0-5); Hematocrit 40.6 % (37-47); Hemoglobin 14.1 g/dl (12.0-15.0); Lymphocyte # 2.61 X10^3/ul (4.0); Lymphocyte % 14.8 % (19-41); Mean Corp Hgb Conc 34.7 g/gl (32-36); Mean Corpuscular Hgb 31.7 pg (27.0-32.0); Mean Corpuscular Volume 91.2 fL (81-99); Monocyte# 1.13 X10^3/uL; Monocyte% 6.4 % (0-10); Neutrophil # 13.63 X10^3/uL (2.7-7.7); Neutrophil % 77.5 % (47-70); Platelet Count 314 K/mm3 (150-450); RBC Distribution Width CV 12.5 % (11.6-14.6); RBC Distribution Width SD 41.8 fl (35.1-43.9); Red Blood Count 4.45 M/mm3 (4.2-5.4); White Blood Count 17.6 K/mm3 (4.4-11.0)
[2018-09-28 11:17] LABS: POSITIVE COUNT NO; POSITIVE DIFFERENTIAL NO; POSITIVE MORPHOLOGY NO
[2018-09-28 11:29] LABS: Internal QC Validated? YES +Cl - CLEAR BKGD; Pregnancy, Serum, hCG Quali. NEGATIVE Negative
[2018-09-28 11:32] LABS: Anion Gap 5 (5-15); BUN 13 mg/dL (7-18); BUN/Creat Ratio 13.7 RATIO (10-20); Calcium,Total 9.1 mg/dL (8.5-10.1); Chloride 110 mmol/L (98-107); Creatinine, Serum 0.95 mg/dL (0.55-1.02); EST Glomerular Filtration Rate 69 mL/min (>60); Est Glom Filt Rate - Afr Amer 84 mL/min (>60); Estimated Creatinine Clearance 65.77 ml/min; Glucose 104 mg/dL (74-106); Potassium 3.9 mmol/L (3.5-5.1); Sodium Level 141 mmol/L (136-145)
[2018-09-28 13:04] VITALS: BP 108/67; PULSE 75; RESP 18; O2SAT 99
--- NOTE | 2018-09-28 13:11 | CT_ITS ---
STUDY: CT ABDOMEN AND PELVIS WITHOUT CONTRAST REASON FOR EXAM: Female, 38 years old. Left lower quadrant pain. Patient presently in her menstrual cycle. RADIATION DOSAGE (If Supplied By Facility): CTDIvol = ( 9.87 ) mGy, DLP = ( 502.96 ) mGycm TECHNIQUE: Transaxial images were obtained from the dome of the diaphragm to the symphysis pubis without oral contrast, and without intravenous contrast. Sagittal and coronal images were reconstructed. Individualized dose optimization techniques were used for this CT. COMPARISON: Pelvic ultrasound 1149 hours. FINDINGS: The visualized lung bases are unremarkable. The visualized portions of the heart are within normal limits. Normal liver. Portal vein diameter is 14.5 mm. Normal gallbladder. Common bile duct diameter reaches 1 cm. Normal spleen. Normal pancreas. Normal bilateral adrenal glands. Normal right kidney. Normal left kidney. No hydronephrosis. Normal visualized stomach. Normal small intestine. Normal colon. The appendix is visualized and appears normal. There is focal atherosclerotic calcification of the distal abdominal aorta, without a demonstrated aneurysm. Normal inferior vena cava. Normal retroperitoneum. Normal urinary bladder. Normal visualized uterus. Subtle heterogeneity in the adnexa may reflect normal follicular cysts. There is a small umbilical hernia containing fat. There are degenerative changes of the visualized lower thoracic and lower lumbar spine. CT/Abdomen/Pelvis without Cont IMPRESSION: 1. No clearly demonstrated source for the patient's complaint. Subtle heterogeneity in the adnexa may reflect normal follicular cysts. 2. No sign of bowel obstruction. The appendix is normal. 3. No hydronephrosis. 4. Incidental note of a small fat-containing umbilical hernia. Electronically Signed: Angelo Cheung MD at 14:03 EDT , Service support ,
--- NOTE | 2018-09-28 14:36 | ED.VISSUMM ---
- ER Visit Summary Date of Service: 09/28/18 Chief Complaint: Pelvic pain History of Present Illness: The patient is a 38 F who woke this morning and noted her period started. It is 3 weeks late. She states there was blood all over her bed sheets. She has had severe pain and cramping. Patient does report history of similar in the past. She been advised that she would need to have a hysterectomy but just got insurance 6 months ago. She recently moved to the area and does not have an TELEGRAPHIC TYPEWRITER MECHANIC here. Patient denies dysuria. She denies vaginal discharge. She does report having some nausea and vomiting this morning secondary to cramping and pain. Physical Examination: Vital signs unremarkable. Patient lying in bed. She is quite uncomfortable. Heart is regular rate and rhythm. Lung sounds are clear. Abdomen is soft with tenderness in the suprapubic and left lower quadrant. No guarding or rebound. Test Results: CBC was a white count of 17.6 with 77% neutrophils. Chemistry studies normal. test negative. Pelvic ultrasound reveals normal uterus. Adnexa are not visualized. CT flank reveals no clear source for the patient's complaint. There is subtle heterogeneity in the adnexa which may reflect follicular cysts. Emergency Department Course and Treatment: Patient was given Dilaudid, Toradol, Zofran, and IV fluids. On repeat evaluation she is resting more comfortably. I advised her at this time they do not see large fibroids in her uterus. When I reviewed the images it does appear her left uterine ligament attaches to the anterior abdominal wall at the area where patient is having focal pain. She may have some scar tissue along this area. Although her white count is elevated, I do not find clear source of infection. This may be demargination from acute pain and vomiting. Patient has been referred to Dr. Herman by a coworker. She will be provided with her information for follow-up. Treatment Plan: [] Disposition: Discharge Impression: Menorrhagia with pelvic pain This note was generated with [employer] dictation software. It may contain incorrect words, spelling, and punctuation that were not noted in review of the chart prior to signing ED Disposition - Plan for ED Patient: Disposition: Home or Assisted Living Instructions: ED Bleeding Menstrual Heavy Prescriptions: Hydrocodone Bitart/Apap 5-325 [[place] 5MG-325MG] 1 tablet PO Q6H PRN PRN 3 Days #10 tablet PRN Reason: Pain Ketorolac [Toradol] 10 mg PO Q6H PRN #14 tablet PRN Reason: Pain Referrals: Angelina Herman MD [STAFF PHYSICIAN] - As soon as possible
== END 2018-09-28 15:07 | disposition home or self-care (01) ==
PROVIDERS: Emergency Provider Emergency Medicine
DX: N92.0 Excessive and frequent menstruation with regular cycle (principal); R10.2 Pelvic and perineal pain; Z72.0 Tobacco use
CPT/HCPCS: 74176; 76830; 80048; 84703; 85025; 96361; 96374; 96375; 99283; J7030; A4216; J2405

== ENCOUNTER → 2018-10-18 10:44 | Outpatient (CLI) | payer OTHER, SELFPAY ==
[2018-09-28 10:39] VITALS: BMI 31.8
[2018-10-18 15:16] LABS: Hemoglobin A1c 5.5 % (4.2-6.3)
[2018-10-18 15:19] LABS: Estradiol 91.2 pg/mL; Free T3 2.8 pg/mL (2.18-3.98); T4 Free Direct 0.87 ng/dL (0.76-1.46); Thyroid Stim Hormone (TSH) 1.97 uIU/mL (0.358-3.74)
[2018-10-18 15:21] LABS: hCG Titer Quant., Serum < 1 mIU/mL (1-3)
== END ==
LOC: WOBLAB 10:46
PROVIDERS: Visit Provider Obstetrics & Gynecology
DX: N93.9 Abnormal uterine and vaginal bleeding, unspecified (principal); N92.0 Excessive and frequent menstruation with regular cycle
CPT/HCPCS: 36415; 82670; 83036; 84144; 84403; 84439; 84443; 84481; 84702

== ENCOUNTER 2018-11-29 05:35 | Day surgery (SDC) | payer OTHER, SELFPAY ==
[2018-11-25 17:18] LABS: Hematocrit 37.7 % (37-47); Hemoglobin 12.8 g/dl (12.0-15.0); Mean Corpuscular Hgb 30.5 pg (27.0-32.0); Mean Platelet Vol. 9.4 fl (6.2-12.0); Platelet Count 340 K/mm3 (150-450); RBC Distribution Width CV 12.2 % (11.6-14.6); RBC Distribution Width SD 39.5 fl (35.1-43.9); Red Blood Count 4.19 M/mm3 (4.2-5.4); White Blood Count 7.4 K/mm3 (4.4-11.0)
[2018-11-25 17:19] LABS: Scan Indicated on CBC? Y/N NO
[2018-11-25 17:27] LABS: Prothrombin Time (Protime)PT. 13.1 SECONDS (11.7-14.9)
[2018-11-25 17:28] LABS: Partial Thromboplast Time 35.2 Seconds (24.1-36.2)
--- NOTE | 2018-11-28 15:51 | PCM.HP.STD ---
History of Present Illness Date of Admission: 11/29/18 The patient is a 38 year old F present with the complaint of pelvic pain. Laparoscopic evaluation of the pelvis for etiology is planned. 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 of right ear with unrestricted hearing of left ear (Chronic) Disorder of both eustachian tubes (Chronic) Allergies Penicillins Allergy (Verified 11/22/18 08:57) Unknown Home Medications: Ambulatory Orders Medication Instructions Recorded Ascorbic Acid [Vitamin C] 1,000 mg PO DAILY 11/22/18 Multivitamin [Daily Multiple 1 ea PO DAILY 11/22/18 Vitamin] [place]-3 Fatty Acids [Fish Oil] 500 mg PO DAILY 11/22/18 Smoking Status: Current every day smoker Tobacco Use: Cigarettes Review of Systems Constitutional: Denies: Chills, Fever, Weight Change HEENT: Denies: Difficulty Hearing, Difficulty Swallowing, Nasal bleeding, Nasal Congestion, Sore Throat Cardiovascular: Denies: Chest Pain, Palpitations Respiratory: Denies: Shortness of Breath, Wheezing Gastrointestinal: Denies: Constipation, Diarrhea, Nausea, Vomiting Genitourinary: Denies: Dysuria, Frequency, Hematuria, Incontinence, Urgency Musculoskeletal: Denies: Joint Pain, Muscle pain Skin: Denies: Lesions, Skin Changes Neurological: Denies: Focal weakness, Numbness Psychiatric: Denies: Anxiety, Depression Endocrine: Denies: Heat/ Cold Intolerance Hematologic/ Lymphatic: Denies: Easy Bleeding VTE Information - Inpt Only VTE Present on Admission: No VTE Mechan Device Prophylaxis: SCD's VTE Pharm Prophylaxis ordered?: No Reason prophylaxis not ordered:: Procedure Not Indicated Subjective: Healthy appearing female of stated age. No distress. - Physical Exam General: No apparent distress, Well developed, Well nourished HEENT: PERRLA, EOMI, Normocephalic Neck: No Nodes, No Nuchal Rigidity, Thyroid Normal Size and Texture Lungs: Clear to auscultation - bilaterally Cardiovascular: Regular rate, No murmurs, No rub noted Abdomen: Soft, Non Tender, Non-Distended, - - No guarding, hepatomegaly, splenomegaly, rebound tenderness Extremities: No clubbing, No cyanosis, No edema, No Calf Tenderness Skin: No rashes, Other - No ulcers, lesions Musculoskeletal: No Tenderness to Palpation of Joints or Extremities, No Muscle Wasting Lymphatic: No Cervical, Supraclavicular, or Inguinal Adenopathy Neurological: Cranial nerves II-XII grossly intact Psych/Mental Status: Alert and oriented to time, place, person, mood and affect Body Mass Index (BMI) 31.8 Assessment/Plan Pelvic pain scheduled for diagnostic laparoscopy for possible endometriosis the preop preparation, the intraop procedures and the postop recovery reviewed. The risks of bleeding, infection and other organ damage including bladder, bowel and ureteral injury reviewed, accepted and consented.
[2018-11-29] VITALS (10 sets, daily range): BP systolic 89–124; BP diastolic 60–88; PULSE 54–70; RESP 16–18; TEMP 35.8–36.4; O2SAT 93–100; BMI 32.3
[2018-11-29 06:09] LABS: Internal QC Validated? YES +Cl - CLEAR BKGD; Pregnancy, Urine Negative Negative
--- NOTE | 2018-11-29 07:30 | EMB_PTH ---
PATIENT: DANYEL BHATT LOC: [facility] U#:[id number] AGE/SX: 38/F ROOM: RE11/29/[address]: Dr. Angelina Herman MD : 1980 BED: DIS: 11/29/2018 SPEC #: [id number] RECD: 11/29/18 09:48 STATUS: YULIA CHUYITA #: [id number] CINDY: 11/29/18 07:[address]: Angelina Herman DEPT: SURGICAL PATHOLOGY RECD BY: Edmond Poe ENTERED: 11/29/18 10:19 SP TYPE: ENDOM BX/C WILLAM DR: No Primary Care Phys Tissues: Endometrium, NOS Procedures: Surgery Specimen Level IV HEADER OPERATION: Hysteroscopy, dilation and curettage, diagnostic laparoscopy PRE-OP DIAGNOSIS: Pelvic pain TISSUE SUBMITTED: Endometrial curettings MICROSCOPIC DIAGNOSIS Endometrial curettings: Proliferative endometrium. Fragments of benign ectocervical epithelium and benign endocervical mucosa. SJ:angelica 12/02/18 MICROSCOPIC DESCRIPTION Slides are reviewed. GROSS DESCRIPTION Received in fixative is one container labeled with the patient's name and designated endometrial curettings. The specimen consists of multiple irregular fragments of reddish-pink soft tissue that in aggregate measure 2.5 x 1.5 x 0.5 cm. The specimen is totally submitted in two cassettes. / CE:angelica 11/29/18 TC:4 CPT: 01689
--- NOTE | 2018-11-29 08:23 | OP.PCM_ITS ---
Report of Operation Date of Procedure: 11/29/18 Pre-Operative Diagnosis: Pelvic pain Post-Operative Diagnosis: Same plus pelvic adhesive disease Surgery/Procedure Performed:: D&C, hysteroscopy, operative laparoscopy, enterolysis Description of Surgical Findings:: Uterus was sounded to approximately 10 cm in anteflexed position. Very little mobility noted on pelvic exam under anesthesia. Upon entry into the abdominal cavity it was noted that there were numerous pelvic adhesive adhesions at the vesicouterine peritoneum to the anterior abdominal wall inhibiting the motion and mobility of the uterus. Left fallopian tube adhesions and left sidewall adhesions of the bowel also noted field service specialist: Suleiman Garcia Anesthesiologist: Emir Hamilton Special Medications: Cefotetan 2 g IV preop and Interceed placed to the area of surgery in the pelvis Specimen's removed: Endometrium Drains: None Estimated Blood Loss (mL): Minimal Fluids Replaced: Lactated Ringer Description of Procedure: Patient was brought to the operating room she was in n.p.o. status. She did not perform the bowel preparation. Patient placed on the operating room table monitors placed and underwent a general anesthetic. Once a general anesthetic found to be adequate she is placed in the dorsal lithotomy position via the Eliot stirrups. She was prepped and draped in the normal sterile fashion. Barnes catheter placed in the bladder and weighted speculum into the vaginal vault. Anterior lip of the cervix was grasped and elevated uterus was sounded to 9-1/2 to 10 cm in anteflexed position. Cervical os was easily dilated to accommodate a 5 mm hysteroscope which was placed into the endometrial cavity and a large amount of endometrial tissue throughout the entire endometrial cavity was noted. The hysteroscope was removed and sharp curettage removal of a large amount of tissue was removed. Then endometrium was then sent away for pathological evaluation. The uterine manipulator then placed to the cervical ossea region in the vaginal vault speculum was removed. Changing gloves and moving to the top of the patient a 5 mm incision was made at the umbilicus and Veress needle placed through this incision. Water test to verify that abdominal placement had occurred. Veress needle was then used to infuse 2 L of CO2 gas into the abdominal cavity. That there is needle was then removed and replaced with a Visiport 5 mm in the history or laparoscope. Once placement into the abdominal cavity was reassured to additional 5 mm trochars were placed under direct visualization in the right and left lower quadrant. The previously described adhesive disease was noted electrocautery was assembled with isa and sequential enteral lysis along the vesicouterine peritoneum along the anterior abdominal wall along the sidewall all to the uterus and fallopian tubes occurred with hemostasis being noted. The irrigation of the entire region occurred. Piece of Interceed was then placed over the left adnexal region were some raw areas were noted to help for adhesion prevention against hemostasis was noted. Should be noted that the ureters were well away from the area of operation and very very visible during the entire procedure. Peristalsis of the bilateral ureters is once again noted after surgery. Trochars were removed under direct visualization and CO2 gas removed from the abdominal cavity. All the incisions were closed with 403 0 Vicryl in a sub-particular fashion. Barnes catheter was thus removed from the bladder and clear urine of approximately 50 cc amount was noted uterine manipulator removed from the cervix as well. The sponge, needle and instrument counts were correct x2. Patient was awakened in stable condition taken to recovery room to be discharged home set Grafts/Implants Used: None - Complications None - Admit VTE Documentation VTE Present on Admission: No VTE Mechan Device Prophylaxis: SCD's Reason prophylaxis not ordered:: Procedure Not Indicated
--- NOTE | 2018-11-29 08:29 | PCM.DC.D&C ---
Discharge Diet: - - Liquid diet x 24 hours followed by soft diet x 72 hours. If no bowel movement noted daily, no diet advancement is advised. Increase daily water intake to a minimum of 120 ounces daily. Discharge Activity: Return to Normal Activity, May Shower, May Take a Tub Bath - in 2 weeks., - - ambulate often with periods of rest in between May shower in (days): 0 - TODAY May resume sexual activity in: 3 weeks Weight Bearing Status: Full weight bearing Lifting Restrictions: none Call your doctor if your incision/area has: Increased Pain/ Swelling, Increased Redness, Foul Smelling Discharge Call your doctor if you observe: Fever of 101 or Higher, Inability to urinate, Inability to have a bowel movement, Using more than one pad per hour Remove Dressing in (days):: 2 - remove with warm, soapy water on 12/01/18 Cleanse incision/area with: Soap & Water Allergies/Adverse Reactions: Allergies Penicillins Allergy (Verified 11/22/18 08:57) Unknown Medications to take at Discharge Ascorbic Acid [Vitamin C] 1,000 mg PO DAILY 11/22/18 Multivitamin [Daily Multiple Vitamin] 1 ea PO DAILY 11/22/18 [place]-3 Fatty Acids [Fish Oil] 500 mg PO DAILY 11/22/18 Primary Care Physician: Care Physician,No Primary [Primary Care Provider] - Test Results: Test results from this visit will be discussed in further detail at your follow-up appointment, if applicable. Please Follow Up With: Angelina Herman MD When: 1-2 weeks postop
== END 2018-11-29 11:41 | disposition home or self-care (01) ==
LOC: SDC 05:36 → AC 05:37
PROVIDERS: Anesthesiology; Referring Provider Obstetrics & Gynecology; Visit Provider Obstetrics & Gynecology
PROC: 0UDB8ZZ Extraction of Endometrium, Via Natural or Artificial Opening Endoscopic (ICD-10-PCS; CPT 58558; principal; 2018-11-29 07:15)
DX: N73.6 Female pelvic peritoneal adhesions (postinfective) (principal); F17.210 Nicotine dependence, cigarettes, uncomplicated
CPT/HCPCS: 44180; 58558; 36415; 81025; 85027; 85610; 85730; 86850; 86900; 88305; J7120; J2405

== ENCOUNTER → 2018-12-13 11:44 | Outpatient (CLI) | payer OTHER, SELFPAY ==
[2018-11-29 06:11] VITALS: BMI 32.3
== END ==
PROVIDERS: Visit Provider Obstetrics & Gynecology
DX: N39.0 Urinary tract infection, site not specified (principal)
CPT/HCPCS: 81001; 87086

== ENCOUNTER 2019-03-05 08:56 | Emergency (ER) | payer OTHER, SELFPAY ==
[2018-11-29 06:11] VITALS: BMI 32.3
[2019-03-05 08:57] VITALS: BP 145/93; PULSE 55; RESP 14; TEMP 36.7; O2SAT 98; BMI 34.2
--- NOTE | 2019-03-05 09:16 | RAD_ITS ---
STUDY: X-RAY CHEST REASON FOR EXAM: Female, 39 years old. Cough. TECHNIQUE: PA and lateral views of the chest. COMPARISON: Comparison is made with prior examination dated November 24, 2017. FINDINGS: EKG electrodes are seen. The lungs are clear and expanded. There is no demonstrated pleural abnormality. Normal size heart. Normal mediastinum and darin. Normal visualized pulmonary arteries. Normal visualized aortic arch and descending thoracic aorta. Normal visualized thoracic spine. Normal visualized ribs, clavicles, and shoulders. There is no demonstrated abnormality of the visualized soft tissue structures of the upper abdomen. RAD/Chest PA and Lateral IMPRESSION: Normal x-ray examination of the chest. Electronically Signed: Hans Ratliff, at 10:02 EDT , Service support ,
--- NOTE | 2019-03-05 09:16 | EKG12_ITS ---
Test Reason : CP Blood Pressure : / mmHG Vent. Rate : 057 BPM Atrial Rate : 057 BPM P-R Int : 132 ms QRS Dur : 086 ms QT Int : 454 ms P-R-T Axes : 023 042 016 degrees QTc Int : 441 ms Sinus bradycardia with sinus arrhythmia Otherwise normal ECG Confirmed by SIDDHARTHA ALVAREZ, JUANY ([id number]), offline editor CYNTHIA FRITZ ([id number]) on 03/11/2019 10:34:29 AM Referred By: HERMANN/LUIS Confirmed By:EDWIGE CARL MD
--- NOTE | 2019-03-05 09:17 | ED.VISSUMM ---
- ER Visit Summary Date of Service: 03/05/19 Chief Complaint: Chest pain History of Present Illness: The patient is a 39 F who presents with chest pain that began yesterday. Patient describes as a tightness. Patient states it is across her chest, shoulders, and into her back. Patient states the pain is worse with coughing and with lifting her arms. Patient does admit to some shortness of breath with this. Patient admits to a cough but denies any sputum production. Patient admits to subjective fevers and chills. Patient also admits to upper respiratory congestion with rhinorrhea and a sore throat. Physical Examination: Vital signs are stable. Patient is afebrile. Patient is in no acute distress. Oral mucosa is pink and moist. Neck is supple. Trachea is midline. There is no JVD noted. Heart was regular rate and rhythm. Lungs are clear and equal bilateral. Abdomen is soft. Bowel sounds are normal. There is no tenderness. There is no guarding noted. Skin is warm dry. Cranial nerves II through XII are intact. There are no focal motor or sensory deficits noted. Test Results: EKG showed a normal sinus rhythm with a rate of 57. There are no acute ST or T wave changes noted. PA and lateral chest x-ray was obtained. There is no acute cardiopulmonary process. CBC, basic metabolic profile, and troponin were obtained were all normal. Emergency Department Course and Treatment: Patient was feeling better on reevaluation. Patient has a HEART score of 1. Patient was advised this is low risk for acute cardiac event. Patient was advised that this is most likely a viral upper respiratory infection. Patient was instructed to drink plenty of fluids. Patient was instructed to take Tylenol or Motrin as needed for any pain or fevers. Patient was instructed to follow-up with her primary care physician in 5 to 7 days. Patient understood and was agreeable with the plan. All questions were answered. Disposition: Discharge home Impression: Viral upper respiratory infection This note was generated with [employer] dictation software. It may contain incorrect words, spelling, and punctuation that were not noted in review of the chart prior to signing ED Disposition - Plan for ED Patient: Disposition: Home or Assisted Living Diagnosis: Viral upper respiratory infection Instructions: URI, Viral, No Abx (Adult) Referrals: Care Physician,No Primary [Primary Care Provider] - Sukhwinder Bush DO [NON CLINICAL AFFILIATE] - 5-7 Days
[2019-03-05 09:37] LABS: Absolute Lymphocyte Count 4.35 X10^3/uL (0.83-4.51); Absolute Neutrophil Count 4.4 X10^3/uL (2.0-7.7); Basophil# 0.06 X10^3/uL; Basophil% 0.6 % (0-1); Eosinophil# 0.24 X10^3/uL; Eosinophils% 2.5 % (0-5); Hematocrit 39.5 % (37-47); Hemoglobin 13.2 g/dL (12.0-15.0); Lymphocyte # 4.35 X10^3/ul (4.0); Lymphocyte % 44.7 % (19-41); Mean Corp Hgb Conc 33.4 g/dL (32-36); Mean Corpuscular Volume 92.7 fL (81-99); Monocyte# 0.69 X10^3/uL; Monocyte% 7.1 % (0-10); NRBC Flagged by Analyzer 0 % (0-5); Neutrophil # 4.38 X10^3/uL (2.7-7.7); Neutrophil % 44.9 % (47-70); Platelet Count 271 K/mm3 (150-450); RBC Distribution Width CV 12.2 % (11.6-14.6); RBC Distribution Width SD 41.5 fl (35.1-43.9); Red Blood Count 4.26 M/mm3 (4.2-5.4); White Blood Count 9.7 K/mm3 (4.4-11.0)
[2019-03-05 09:59] LABS: Anion Gap 6 (5-15); BUN 14 mg/dL (7-18); BUN/Creat Ratio 16.6 RATIO (10-20); Calcium,Total 9.1 mg/dL (8.5-10.1); Chloride 106 mmol/L (98-107); Creatinine, Serum 0.84 mg/dL (0.55-1.02); EST Glomerular Filtration Rate 80 mL/min (>60); Est Glom Filt Rate - Afr Amer 96 mL/min (>60); Estimated Creatinine Clearance 73.64 ml/min; Glucose 92 mg/dL (74-106); Potassium 3.8 mmol/L (3.5-5.1); Sodium Level 142 mmol/L (136-145)
[2019-03-05 10:02] VITALS: BP 126/74; PULSE 48; RESP 15; O2SAT 99
[2019-03-05 11:13] VITALS: BP 105/81; PULSE 64; RESP 12; O2SAT 99
== END 2019-03-05 11:15 | disposition home or self-care (01) ==
PROVIDERS: Emergency Provider Emergency Medicine
DX: J06.9 Acute upper respiratory infection, unspecified (principal); E66.9 Obesity, unspecified; Z68.32 Body mass index [BMI] 32.0-32.9, adult; Z72.0 Tobacco use
CPT/HCPCS: 71046; 80048; 84484; 85025; 93005; 99284; A4216

== ENCOUNTER 2019-06-24 15:34 | Emergency (ER) | payer OTHER, MEDICAID, SELFPAY ==
[2019-06-24 15:35] VITALS: BP 122/81; PULSE 91; RESP 16; TEMP 36.7; O2SAT 98; BMI 31.7
--- NOTE | 2019-06-24 15:47 | ED.VISSUMM ---
- ER Visit Summary Date of Service: 06/24/19 Chief Complaint: [Pain right foot] History of Present Illness: The patient is a 39 F [presents to the emergency department with pain in her right foot for about a month. Patient denies any injury. Patient states that she works in a [employer] department where it soft and cold. Patient planes of pain mostly to the toes. Patient states that time she is noticed discoloration to her toes. Patient is concerned that she may have gout. She has been using Naprosyn and not get much pain relief. Patient does state that she had been told in the past that she has had had Raynaud's because 1 of her fingers turns white when she gets cold. Patient otherwise has no medical history.] Physical Examination: [HEENT-PERRLA, EOMI. Cranial nerves II through XII grossly intact. TMs clear. Mucous membranes moist. No adenopathy. Cardiovascular-regular rate and rhythm without murmur or ectopy Lungs-clear to auscultation, chest wall stable without crepitus or subcu emphysema Abdomen-normoactive bowel sounds, soft, nontender, no rebound or rigidity, no peritoneal signs. Extremities-intact ?4, normal range of motion, normal pulses, atraumatic. Right foot-no deformity. No ecchymosis or bruising noted. No soft tissue swelling noted. Patient has normal dorsal pedal and posterior tibial pulses. Patient has normal cap refill. Toes are pink and warm. She has normal flexion-extension of all toes. No evidence of cellulitis.] Test Results: [Patient refused x-rays. Patient states that she will follow-up with her construction materials tester and he will likely want them so she wants to wait.] I suspect patient may have Raynaud's potentially. Emergency Department Course and Treatment: [Will be given a prescription for few Dewy Rose for pain] Treatment Plan: [Up with construction materials tester and few Dewy Rose for pain as needed.] Disposition: [Discharged home in stable condition.] Impression: [Foot pain-etiology uncertain] This note was generated with [employer] software. It may contain incorrect words, spelling, and punctuation that were not noted in review of the chart prior to signing ED Disposition - Plan for ED Patient: Referrals: Raghavendra Silva MD [Primary Care Provider] -
--- NOTE | 2019-06-24 15:58 | ED.DEP ---
ED Disposition - Plan for ED Patient: Instructions: Raynaud Disease Prescriptions: Hydrocodone Bitart/Apap 5-325 [[place] 5MG-325MG] 1 tab PO Q4H PRN PRN 2 Days #10 tab PRN Reason: Pain Prescription Printed Referrals: Raghavendra Silva MD [Primary Care Provider] - Additional Instructions: see your clinical trials specialist
[2019-06-24 16:09] VITALS: PULSE 79; RESP 15; O2SAT 99
== END 2019-06-24 16:11 | disposition home or self-care (01) ==
LOC: ED 15:50
PROVIDERS: Emergency Provider Emergency Medicine; PCP Family Medicine
DX: M79.671 Pain in right foot (principal); R23.8 Other skin changes; Z87.891 Personal history of nicotine dependence
CPT/HCPCS: 99282

== ENCOUNTER 2020-02-16 12:37 | Emergency (ER) | payer OTHER, MEDICAID, SELFPAY ==
[2020-02-16 12:38] VITALS: BP 125/93; PULSE 95; RESP 16; TEMP 36.4; O2SAT 98; BMI 30.9
--- NOTE | 2020-02-16 13:05 | ED.VIS.GEN ---
History of Present Illness Chief Complaint: Burn Narrative: Patient presents with a right foot burn that happened 4 days ago. She is here for a wound check since she could not get in to see her PCP on Sunday. She has no other complaints Past Medical History - Allergies and Home Meds Allergies/Adverse Reactions: Allergies Penicillins Allergy (Verified 02/16/20 12:38) Unknown Primary Care Physician: Raghavendra Silva MD [Primary Care Provider] - Past Medical History: None Smoking Status: Current every day smoker Review of Systems General: Denies: Fever Musculoskeletal: Reports: Extremity Pain Skin: Reports: Wounds Neurological: Denies: Weakness, Parasthesia Hematologic: Denies: Easy bruising, Easy bleeding Physical Exam Vital Signs/Narrative: Vital Signs Temp Pulse Resp BP Pulse Ox 02/16/20 12:38 97.6 F L 95 16 125/93 H 98 General: Well nourished, Well developed ENT: Moist mucous membranes Cardiovascular: Regular rate, Regular rhythm Respiratory: No distress, CTA bilaterally Abdomen: Soft, Nontender Extremities: - - Right foot shows a 5 x 4 cm burn distal dorsum foot region there is a vesicle that is still intact with fluid underneath, there is no erythema or [place] or any signs of infection. Neurological: Normal Strength, Normal Sensation Diagnostic/Tx/Re-eval - Medical Decision Making Patient has no signs of infection. Local wound care is explained to her. Otherwise she can be discharged with analgesia for home. Tetanus is up-to-date. ED Disposition - Plan for ED Patient: Diagnosis: Burn Instructions: ED [facility]- [facility] Prescriptions: Hydrocodone Bitart/Apap 5-325 [[place] 5MG-325MG] 1 tablet PO Q4H PRN PRN 2 Days #10 tablet PRN Reason: Pain Transmission Status: Received by [facility] Referrals: Raghavendra Silva MD [Primary Care Provider] -
== END 2020-02-16 13:49 | disposition home or self-care (01) ==
LOC: ED 13:37
PROVIDERS: Emergency Provider Emergency Medicine; PCP Family Medicine
DX: T25.021A Burn of unspecified degree of right foot, initial encounter (principal); F17.200 Nicotine dependence, unspecified, uncomplicated
CPT/HCPCS: 99282

== ENCOUNTER 2020-06-10 17:28 | Emergency (ER) | payer OTHER, MEDICAID, SELFPAY ==
[2020-06-10 17:29] VITALS: BP 163/100; PULSE 75; RESP 18; TEMP 37.2; O2SAT 97; BMI 32.9
--- NOTE | 2020-06-10 17:34 | CT_ITS ---
STUDY: CT ABDOMEN AND PELVIS WITHOUT CONTRAST REASON FOR EXAM: Female, 40 years old. RIGHT FLANK PAIN. RADIATION DOSAGE (If Supplied By Facility): CTDIvol = ( 11.84 ) mGy, DLP = ( 638.69 ) mGycm TECHNIQUE: Transaxial images were obtained from the dome of the diaphragm to the symphysis pubis without oral contrast, and without intravenous contrast. Sagittal and coronal images were reconstructed. Individualized dose optimization techniques were used for this CT. COMPARISON: 09/28/2018 FINDINGS: The visualized lung bases are unremarkable. The visualized portions of the heart are within normal limits. Normal liver. Normal gallbladder and extrahepatic biliary system. Normal spleen. Normal pancreas. Normal bilateral adrenal glands. Normal right kidney. Normal left kidney. Normal visualized stomach. Normal small intestine. Minor diverticular changes of the colon without evidence for acute diverticulitis. No evidence for acute appendicitis Minor atherosclerotic changes of the aorta without evidence for aneurysm.. Normal inferior vena cava. Normal retroperitoneum. Incompletely distended thick-walled bladder likely of no significance. Uterus not visualized consistent with hysterectomy Normal abdominal wall. Normal osseous structures. CT/Abdomen/Pelvis without Cont IMPRESSION: Minor diverticular disease of the colon without evidence for acute diverticulitis No acute abnormalities postsurgical changes status post hysterectomy.. Electronically Signed: Leonidas Ratliff MD at 18:23 EST , Service support ,
--- NOTE | 2020-06-10 17:36 | ED.DCSUM_ITS ---
History of Present Illness Chief Complaint: Flank Pain Informant: Patient Onset: Days Context: Gradual Onset Timing: Intermittent Current Severity: Moderate Maximum Severity: Severe Narrative: The patient is a 40-year-old female with medical history significant for prior hysterectomy the presents to the emergency department for right-sided flank pain. She states it has been intermittent for the past 3 days, but acutely worsened today. She has been nauseated. She states pain comes in waves. She states that she went to urgent care and had a urine. She was referred here for further evaluation because she did have hematuria. She denies fever or chills. She states she did take half of a [place] tablet which did not really seem to improve her pain. She states she is otherwise been in her normal state of health. She denies any trauma. She denies any shortness of breath or cough. Prior similar symptoms: No Recent Illness/Hospitalization: No Past Medical History - Allergies and Home Meds Allergies/Adverse Reactions: Allergies Penicillins Allergy (Verified 06/10/20 17:30) Unknown Primary Care Physician: Raghavendra Silva MD [Primary Care Provider] - Prior records reviewed: Yes Past Medical History: None Surgical History: hysterectomy Smoking Status: Current every day smoker Review of Systems General: Denies: Chills, Fever, Sweats Eyes: Denies: Visual changes - bilaterally, Diplopia ENT: Denies: Rhinorrhea, Sore throat Cardiovascular: Denies: Chest pain, Palpitations Respiratory: Denies: Dyspnea, Cough, Dyspnea on exertion Gastrointestinal: Reports: Nausea. Denies: Abdominal pain, Vomiting, Diarrhea, Melena, Hematochezia Genitourinary: Reports: Hematuria. Denies: Dysuria, Frequency Musculoskeletal: Reports: Back pain. Denies: Extremity Pain Skin: Denies: Rash, Wounds Neurological: Denies: Headache, Weakness, Numbness Physical Exam Vital Signs/Narrative: Vital Signs Temp Pulse Resp BP Pulse Ox 06/10/20 17:29 98.9 F 75 18 163/100 H 97 Inital Vital Signs reviewed: Yes General: Well nourished, Well developed, No Acute Distress Head: Normocephalic, Atraumatic Eyes: Perrl, EOMI ENT: Moist mucous membranes, No rhinorrhea Neck: Supple, Nontender Cardiovascular: Regular rate, Regular rhythm, No murmurs Respiratory: No distress, CTA bilaterally, Chest nontender Abdomen: Soft, Nontender, Nondistended, Normal bowel sounds Back: Nontender, Normal Inspection Extremities: Nontender, No edema Skin: Normal color, No rash Neurological: Alert, Oriented x3, Cranial nerves II-XII grossly intact, Normal Strength, Normal Sensation Psychological: Normal affect, Normal Mood Diagnostic/Tx/Re-eval Clinical Impression(s) from Imaging Studies Abdomen/Pelvis CT 06/10/20 17:34 IMPRESSION: Minor diverticular disease of the colon without evidence for acute diverticulitis No acute abnormalities postsurgical changes status post hysterectomy.. Electronically Signed: Leonidas Ratliff MD at 18:23 EST , Service support , Abnormal Lab Results 06/10/20 06/10/20 06/10/20 17:55 17:55 17:55 WBC 12.6 H RBC 4.52 Hgb 13.9 Hct 41.0 MCV 90.7 MCH 30.8 MCHC 33.9 RDW Std Deviation 39.9 RDW Coeff of [place] 11.9 Plt Count 348 MPV 9.2 Immature Gran % (Auto) 0.300 Neut % (Auto) 50.0 Lymph % (Auto) 40.0 [place] % (Auto) 7.4 Eos % (Auto) 1.7 Baso % (Auto) 0.6 Absolute Neuts (auto) 6.3 Absolute Lymphs (auto) 5.05 H Nucleated RBC % 0 Differential Comment SEE COMMENT Diff Path Review May foll Platelet Estimate ADEQUATE RBC Morphology N CHROM Anisocytosis RARE Macrocytosis RARE Sodium 136 Potassium 3.8 Chloride 106 Carbon Dioxide 26.0 Anion Gap 4 L BUN 12 Creatinine 0.95 Estim Creat Clear Calc 67.30 Est GFR (MDRD) Af Amer 83 Est GFR (MDRD) Non-Af 69 BUN/Creatinine Ratio 12.6 Glucose 89 Calcium 9.9 Urine Color Yellow Urine Clarity Clear Urine pH 5.0 Ur Specific [place] 1.020 Urine Protein Negative Urine Glucose (UA) Normal Urine Ketones 5 H Urine Occult Blood Negative Urine Nitrite Negative Urine Bilirubin Negative Urine Urobilinogen Normal Ur Leukocyte Esterase Negative Urine RBC 0 SEEN Urine WBC 0 SEEN Ur Squamous Epith Cells 10-25 SEEN Urine Bacteria RARE Urine Mucus 0 SEEN - Medical Decision Making Patient presents with intermittent flank pain that has now been persistent and reported hematuria. She has no skin changes or trauma. Her abdomen is soft and nontender. IV was established. She was given analgesics with some improvement of her pain. Urine does not show evidence of infection. Screening labs are relatively unremarkable. Patient underwent CT. There was no evidence of definitive urolithiasis or obstruction. On reevaluation, she is more comfortable. Not sure if there is a small stone we are just not able to visualize or if this is muscular. I do not feel this is a dangerous pain. I do feel that she is safe for outpatient therapy. She is comfortable with this plan of care. Impression 1. Right flank pain ED Disposition - Plan for ED Patient: Instructions: ED Flank Pain, Uncertain Cause Prescriptions: cycloBENZAPRine HCl [Flexeril] 10 mg PO TID PRN #20 tab PRN Reason: Muscle Spasm Prescription Printed Hydrocodone Bitart/Apap 5-325 [[place] 5MG-325MG] 1 tab PO Q6H PRN PRN 3 Days #10 tab PRN Reason: Pain Prescription Printed Ondansetron [Zofran Odt] 4 mg PO Q8H PRN PRN #10 tab PRN Reason: Nausea Prescription Printed Referrals: Raghavendra Silva MD [Primary Care Provider] -
[2020-06-10] MEDS: Ondansetron 4 MG/2 ML Vial IV (17:50)
[2020-06-10] MEDS: Ketorolac 15 MG/ML Vial IV (17:50)
[2020-06-10] MEDS: 0.9% Normal Saline 1,000 ML 250 ML IV (17:50)
[2020-06-10] MEDS: Morphine 4 MG/ML Syringe IV ×2 (17:51→18:47)
[2020-06-10 18:03] LABS: Mucous, Urine 0 SEEN /hpf (<or=2+); Red Blood Cells-Urine 0 SEEN /hpf (0-5); White Blood Cells 0 SEEN /hpf (0-5)
[2020-06-10 18:07] LABS: Absolute Lymphocyte Count 5.05 X10^3/uL (0.83-4.51); Absolute Neutrophil Count 6.3 X10^3/uL (2.0-7.7); Basophil# 0.08 X10^3/uL; Basophil% 0.6 % (0-1); Eosinophil# 0.22 X10^3/uL; Eosinophils% 1.7 % (0-5); Hemoglobin 13.9 g/dL (12.0-15.0); Lymphocyte # 5.05 X10^3/ul (4.0); Mean Corp Hgb Conc 33.9 g/dL (32-36); Mean Corpuscular Hgb 30.8 pg (27.0-32.0); Mean Corpuscular Volume 90.7 fL (81-99); Mean Platelet Vol. 9.2 fl (6.2-12.0); Monocyte# 0.93 X10^3/uL; Monocyte% 7.4 % (0-10); NRBC Flagged by Analyzer 0 % (0-5); Neutrophil # 6.32 X10^3/uL (2.7-7.7); POSITIVE DIFFERENTIAL YES; Platelet Count 348 K/mm3 (150-450); RBC Distribution Width CV 11.9 % (11.6-14.6); RBC Distribution Width SD 39.9 fl (35.1-43.9); Red Blood Count 4.52 M/mm3 (4.2-5.4); White Blood Count 12.6 K/mm3 (4.4-11.0)
[2020-06-10 18:21] LABS: Color, Urine Yellow (Yellow); Glucose, Dipstick Normal (Normal); Ketone-Dipstick 5 mg/dl (Negative); Leukocyte Esterase-Dipstick Negative /ul (Negative); Nitrite-Dipstick Negative (Negative); Occult Blood-Urine Negative /ul (Negative); Protein-Dipstick Negative (Negative); Urine Bilirubin Dipstick Negative (Negative); Urine Clarity Clear (Clear); Urine Urobilinogen Normal (Normal)
[2020-06-10 18:26] VITALS: BP 111/71; PULSE 69; RESP 18; O2SAT 100
[2020-06-10 18:34] LABS: Anion Gap 4 (5-15); BUN 12 mg/dL (7-18); BUN/Creat Ratio 12.6 RATIO (10-20); Calcium,Total 9.9 mg/dL (8.5-10.1); Chloride 106 mmol/L (98-107); Creatinine, Serum 0.95 mg/dL (0.55-1.02); EST Glomerular Filtration Rate 69 mL/min (>60); Est Glom Filt Rate - Afr Amer 83 mL/min (>60); Glucose 89 mg/dL (74-106); Potassium 3.8 mmol/L (3.5-5.1); Sodium Level 136 mmol/L (136-145)
[2020-06-10 18:38] LABS: Bacteria RARE /hpf (None Seen); Squamous Epithelial Cells - UA 10-25 SEEN /hpf (5-10)
[2020-06-10 18:41] LABS: Differential Indicated SCAN CRITERIA MET
[2020-06-10 18:44] LABS: Anisocytosis RARE; Macrocytosis RARE; Platelet Estimate ADEQUATE (ADEQ); Red Cell Morphology N CHROM NORMAL (NORM C&C)
[2020-06-10 19:10] VITALS: BP 122/70; PULSE 60; RESP 18; O2SAT 99
[2020-06-11 12:31] LABS: Pathologist Review Reviewed
== END 2020-06-10 19:11 | disposition home or self-care (01) ==
LOC: ED 18:01
PROVIDERS: Emergency Provider Emergency Medicine; PCP Family Medicine
DX: R10.9 Unspecified abdominal pain (principal); R31.9 Hematuria, unspecified; F17.200 Nicotine dependence, unspecified, uncomplicated
CPT/HCPCS: 74176; 80048; 81001; 85025; 96374; 96375; 96376; 99284; J2405

== ENCOUNTER → 2020-06-24 15:22 | Outpatient (CLI) | payer OTHER, MEDICAID, SELFPAY ==
[2020-06-10 17:29] VITALS: BMI 32.9
[2020-06-24 18:07] LABS: Creatinine, Serum 0.86 mg/dL (0.55-1.02); EST Glomerular Filtration Rate 77 mL/min (>60); Est Glom Filt Rate - Afr Amer 93 mL/min (>60)
== END ==
PROVIDERS: PCP Family Medicine; Referring Provider Otolaryngology; Visit Provider Otolaryngology
DX: H70.11 Chronic mastoiditis, right ear (principal)
CPT/HCPCS: 36415; 82565

== ENCOUNTER → 2020-07-05 07:15 | Outpatient (CLI) | payer OTHER, MEDICAID, SELFPAY ==
[2020-06-10 17:29] VITALS: BMI 32.9
--- NOTE | 2020-07-05 07:17 | CT_ITS ---
STUDY: CT TEMPORAL BONES WITHOUT CONTRAST REASON FOR EXAM: Female, 40 years old. Chronic mastoiditis, right side worse than left, bilateral TMJ pain today. Prior myringotomy tubes placed. RADIATION DOSAGE (If Supplied By Facility): CTDIvol = ( 67.58 ) mGy, DLP = ( 616.25 ) mGycm TECHNIQUE: The patient was scanned in a multi detector CT scanner. High resolution transaxial imaging was performed without the administration of intravenous contrast material. Sagittal and coronal images were reconstructed. Individualized dose optimization techniques were used for this CT. COMPARISON: None. FINDINGS: RIGHT TEMPORAL BONE Normal right external auditory canal. Normal malleus, incus and stapedius. Normal malleoincudal and incudostapedial articulations. Normal epitympanum, mesotympanum, and hypotympanum. Normal right posterior, superior and lateral semicircular canals. Normal right vestibule and cochlea. Normal tympanic segment of the facial nerve. Normal Korner''s septum, tegmen tympani, arcuate eminence and aditus ad antrum. There are moderate inflammatory changes of the right mastoid air cells consistent with moderate right sided chronic otomastoiditis. Normal right petrous apex. Normal right petrous carotid artery. Normal right jugular fossa. Normal right internal auditory canal. Normal right vestibular and cochlear aqueducts. LEFT TEMPORAL BONE Normal left external auditory canal. Normal malleus, incus and stapedius. Normal malleoincudal and incudostapedial articulations. Normal epitympanum, mesotympanum, and hypotympanum. Normal left posterior, superior and lateral semicircular canals. Normal left vestibule and cochlea. Normal tympanic segment of the facial nerve. Normal Korner''s septum, tegmen tympani, arcuate eminence and aditus ad antrum. Normal left mastoid air cells. Normal left petrous apex. Normal left petrous carotid artery. Normal left jugular fossa. Normal left internal auditory canal. Normal left vestibular and cochlear aqueducts. CT/Orb Sella Post Fossa Ear w/o IMPRESSION: Moderate degree on the right sided chronic mastoiditis. Electronically Signed: Hans Ratliff MD at 9:13 EST , Service support ,
== END ==
PROVIDERS: PCP Family Medicine; Referring Provider Otolaryngology; Visit Provider Otolaryngology
DX: H70.11 Chronic mastoiditis, right ear (principal)
CPT/HCPCS: 70480

== ENCOUNTER 2021-04-07 07:46 | Emergency (ER) | payer OTHER, MEDICAID, SELFPAY ==
[2021-04-07 07:46] VITALS: BP 131/96; PULSE 80; RESP 16; TEMP 36.1; O2SAT 97; BMI 32.5
--- NOTE | 2021-04-07 08:03 | RAD_ITS ---
STUDY: X-RAY - RIGHT FOOT CLINICAL: Female, 41 years old. Pain TECHNIQUE: 3 view(s) of the foot. COMPARISON: None. FINDINGS: Normal talus, calcaneus, and tarsal bones. Normal visualized subtalar, talonavicular, calcaneocuboid, tarsal and tarsometatarsal articulations. Normal metatarsi. Normal metatarsophalangeal joint of the great toe. Normal tibial and fibular sesamoid bones. Normal interphalangeal joint of the great toe. Normal phalanges of the great toe. Normal second through fifth metatarsophalangeal joints. Normal interphalangeal joints and phalanges of the lesser toes. Soft tissue swelling overlying the great toe. RAD/Foot min 3 Views IMPRESSION: Soft tissue swelling overlying the great toe. Electronically Signed: Hans Ratliff MD at 8:34 EDT , Service support ,
--- NOTE | 2021-04-07 08:04 | EDS_ITS ---
HPI History of Present Illness Chief Complaint: Lower Extremity Injury Informant: patient Onset/Context/Timing Onset: Days (2) Context: Gradual Onset Timing: Continuous Quality of Pain: - (Pain) Location: lateral R forefoot Current Severity: Severe Maximum Severity: Severe Worsened by: touching, walking on it Relieved by: nothing Associated Symptoms Associated Symptoms: Negative for Parasthesia, Weakness and Loss of Funtion Narrative Narrative: Spontaneous onset of right foot pain for 2 days that is severe now and she is having trouble walking on it as a result. She denies any other symptoms including fevers. She agrees that it is not red, swollen, nor does it look abnormal. She has had this before and it was unexplained then to even af ter seeing a clinical reimbursement specialist and went away on its own at some point but she states it is more severe at this time, but otherwise similar. It is in her right forefoot lateral, including toes 4-5. She states that she has had a cough, cold, with sinus infection recently and saw someone that prescribed her some kind of penicillin that she has been taking for 2 or 3 days and she states her cold is feeling better. PFSH PFSH Medical History no medical history no medical history Home Medications hydrocodone-acetaminophen 1 tab PO Q4H PRN PRN 2 Days #10 tablet 04/07/21 [Rx Last Taken Unknown] prednisone 40 mg PO DAILY 5 Days #10 tablet 04/07/21 [Rx Last Taken Unknown] Allergy/AdvReac Type Severity Reaction Status Date / Time Penicillins Allergy Unknown Verified 04/07/21 07:49 Family History no significant family his Surgical History no surgical history Social History Smoking Status: Current every day smoker tobacco type: cigarettes ROS ROS ED Constitutional Constitutional ED: Denies chills or fever(s) Eyes Eyes: Denies blurry vision or diplopia ENT ENT ED: Reports nasal congestion, rhinorrhea and sinus pain Cardiovascular Cardiovascular: Denies chest pain or dyspnea Respiratory/Chest Respiratory/Chest: Reports cough; Denies dyspnea Musculoskeletal Musculoskeletal: Reports extremity pain; Denies neck pain Integumentary Denies Abrasions, rash or wounds Neurologic Neurologic: Denies paresthesias or weakness EXAM Physical Exam Const Vital Signs: 04/07/21 07:46 Temperature 97.0 F L Temperature Source Temporal Pulse Rate 80 Respiratory Rate 16 Blood Pressure 131/96 H Blood Pressure Mean 107 Pulse Ox 97 Oxygen Delivery Method Room Air Positive well nourished and well developed General Appearance ED: well developed and NAD Neck full ROM and supple Back/Spine normal ROM and normal to inspection Extremity Extremity Narrative: Just touching the skin on the plantar aspect of the affected area of the lateral/peroneal right forefoot is extremely tender. The skin is normal-appearing and not excessively warm compared with surrounding areas. Area progresses to basically the distal half of the metatarsals 4-5 and the associated toes, it does not go back as far as the base of the fifth metatarsal or the heel or the midfoot or the other metatarsals/toes. Neuro oriented x3, no focal motor deficits and no sensory deficits noted Sensorium / Orientation: alert Psych mental status grossly normal and thought process normal Skin no wounds Skin Narrative: Normal-appearing skin throughout the right foot including the plantar aspect and webspaces of toes without lesions, nidus for infection, or color abnormality Rashes: no rashes MDM MDM MDM Narrative Medical decision making narrative: X-ray is normal, the area where the radiologist may be saw soft tissue swelling is asymptomatic for this patient and nontender. Her work-up is a mixed bag. Her CRP is slightly abnormal, her white blood count is higher than normal but she has been higher than this in the past and that is nonspecific, there is no left shift, and it is unclear whether this indicates infection or not, I think it is less likely, but she is usually in the normal white blood count range. Her uric acid is within normal limits, this does not rule out the possibility of gout, but I think that is unlikely as well given the exam and the location of the pain. If this is some type of neuropathy, that would explain why she is so sensitive to the touch of the skin in the affected area, in the unusual distribution might be explained by that but she has no reason to have a neuropathy. I did straight leg raises bilaterally they are negative and they do not worsen the discomfort including the cross leg. At this point to cover her bases, since I am not able to rule out infection in her foot is so normal-appearing that I do not think any emergent CT or MRI would necessarily be helpful, even if the MRI showed inflammatory changes since there clearly is no room for an abscess in this small area that is not swollen or erythematous, it would still be nonspecific. Therefore my plan is to give her a single dose of IV vancomycin, and a wait and see prescription for prednisone. I discussed all this with the patient, if she is no better in 48 hours I would start the prednisone, if it looks different and getting red, swollen, etc., then hold off on the prednisone and return to the ER or podiatry for follow-up. She is comfortable with that plan. Lab Data Attestation: I reviewed the patient's lab results. Labs: Laboratory Results - last 24 hr 04/07/21 04/07/21 08:15 08:15 WBC 14.7 H RBC 4.17 L Hgb 13.0 Hct 37.9 MCV 90.9 MCH 31.2 MCHC 34.3 RDW Std Deviation 40.1 RDW Coeff of [place] 12.0 Plt Count 349 MPV 9.2 Immature Gran % (Auto) 0.500 Neut % (Auto) 52.6 Lymph % (Auto) 38.4 [place] % (Auto) 6.0 Eos % (Auto) 2.0 Baso % (Auto) 0.5 Absolute Neuts (auto) 7.7 Absolute Lymphs (auto) 5.66 H Nucleated RBC % 0 ESR 12 Sodium 137 Potassium 3.8 Chloride 106 Carbon Dioxide 25.0 Anion Gap 6 BUN 11 Creatinine 0.87 Estim Creat Clear Calc 72.74 Est GFR (MDRD) Af Amer 92 Est GFR (MDRD) Non-Af 76 BUN/Creatinine Ratio 12.7 Glucose 91 Uric Acid 3.0 Calcium 9.1 C-React Prot Ext Range 6.85 H Radiography Diagnostic Testing: Clinical Impression(s) from Imaging Studies Foot X-Ray 04/07/21 08:03 IMPRESSION: Soft tissue swelling overlying the great toe. Electronically Signed: Hans Ratliff MD at 8:34 EDT , Service support , On my interpretation, 3 views right foot are normal including the affected area. Discharge Plan Triage Chief Complaint: Lower Extremity Injury ED Provider: Kar Lopez Dx/Rx/DC Orders Clinical Impression: Acute pain of right foot Instructions: Parts of a Foot, ED Pain, Acute, Uncertain Cause Prescriptions: New prednisone 20 MG tablet 40 mg PO DAILY 5 Days Qty: 10 RF: 0 hydrocodone-acetaminophen [hydrocodone-acetaminophen] 1 TABLET tablet 1 tab PO Q4H PRN PRN (Reason: Pain) 2 Days Qty: 10 RF: 0 Primary Care Provider: Raghavendra Silva Referrals: Raghavendra Silva MD [Primary Care Provider] - Barb Silva DPM [STAFF PHYSICIAN] - As soon as possible (call for appt) Activity Restrictions/Additional Instructions: You received 15 mg/kg of vancomycin which is a long-acting antibiotic that will kill most organisms that cause soft tissue/skin infections, which you have no evidence of at this time, however the question is whether it is early in the process of such a process or something else. If it is a noninfectious inflammat ory process this will not help, but it is unlikely to harm you. Eat yogurt to prevent diarrhea from the antibiotics that you are on and this one. See if you can give it about 48 hours to see if there is a difference, you may take the pain medication in the meantime as needed. If you feel like there is no major improvement, start the prednisone and take it until it is finished. You cannot take the prednisone pills intermittently, when she started complete it or stop it altogether if you start seeing redness and swelling which may indicate an infection, and return to the ER or the petroleum analyst listed above. Disposition Disposition: Home, Self Care
[2021-04-07] MEDS: Ibuprofen 600 MG Tablet PO (08:13)
[2021-04-07 08:31] LABS: Absolute Lymphocyte Count 5.66 X10^3/uL (0.83-4.51); Absolute Neutrophil Count 7.7 X10^3/uL (2.0-7.7); Basophil# 0.08 X10^3/uL; Basophil% 0.5 % (0-1); Eosinophil# 0.29 X10^3/uL; Hematocrit 37.9 % (37-47); Lymphocyte # 5.66 X10^3/ul (0.83-4.51); Lymphocyte % 38.4 % (19-41); Mean Corp Hgb Conc 34.3 g/dL (32-36); Mean Corpuscular Hgb 31.2 pg (27.0-32.0); Mean Corpuscular Volume 90.9 fL (81-99); Mean Platelet Vol. 9.2 fl (6.2-12.0); Monocyte# 0.89 X10^3/uL; NRBC Flagged by Analyzer 0 % (0-5); Neutrophil # 7.74 X10^3/uL (2.7-7.7); Neutrophil % 52.6 % (47-70); POSITIVE DIFFERENTIAL YES; Platelet Count 349 K/mm3 (150-450); RBC Distribution Width SD 40.1 fl (35.1-43.9); Red Blood Count 4.17 M/mm3 (4.2-5.4); White Blood Count 14.7 K/mm3 (4.4-11.0)
[2021-04-07 08:35] LABS: Differential Indicated SCAN CRITERIA MET
[2021-04-07 08:36] LABS: Erythrocyte Sedimentation Rate 12 mm/hr (0-30)
[2021-04-07 08:37] LABS: Anion Gap 6 (5-15); BUN 11 mg/dL (7-18); BUN/Creat Ratio 12.7 RATIO (10-20); CRP 6.85 mg/L (0.0-3.0); Calcium,Total 9.1 mg/dL (8.5-10.1); Chloride 106 mmol/L (98-107); Creatinine, Serum 0.87 mg/dL (0.55-1.02); EST Glomerular Filtration Rate 76 mL/min (>60); Est Glom Filt Rate - Afr Amer 92 mL/min (>60); Estimated Creatinine Clearance 72.74 ml/min; Glucose 91 mg/dL (74-106); Potassium 3.8 mmol/L (3.5-5.1); Sodium Level 137 mmol/L (136-145)
[2021-04-07 09:23] LABS: Differential Comment SCANNED
== END 2021-04-07 11:37 | disposition home or self-care (01) ==
PROVIDERS: Emergency Provider Emergency Medicine; PCP Family Medicine
DX: M79.671 Pain in right foot (principal); F17.210 Nicotine dependence, cigarettes, uncomplicated
CPT/HCPCS: 36415; 73630; 80048; 84550; 85025; 85652; 86140; 96365; 96366; 99284; J7050; A4216

== ENCOUNTER → 2021-05-02 11:26 | Outpatient (CLI) | payer OTHER, MEDICAID, SELFPAY ==
--- NOTE | 2021-05-02 11:30 | RAD_ITS ---
STUDY: X-RAY CHEST REASON FOR EXAM: Female, 41 years old. Acute bronchitis. TECHNIQUE: Frontal and lateral views of the chest. COMPARISON: 03/05/2019. FINDINGS: The lungs are clear and expanded. There is no demonstrated pleural abnormality. Normal size heart. Normal mediastinum and darin. Normal visualized pulmonary arteries. Normal visualized aortic arch and descending thoracic aorta. Normal visualized thoracic spine. Normal visualized ribs, clavicles, and shoulders. There is no demonstrated abnormality of the visualized soft tissue structures of the upper abdomen. RAD/Chest PA and Lateral IMPRESSION: No interval change. Normal chest. Electronically Signed: Damon Rangel MD at 12:42 EST , Service support ,
== END ==
PROVIDERS: PCP Family Medicine; Referring Provider Otolaryngology; Visit Provider Otolaryngology
DX: J20.9 Acute bronchitis, unspecified (principal)
CPT/HCPCS: 71046